=== PATIENT | female | born 1940 ===

== ENCOUNTER 2018-01-17 20:16 | Inpatient (IN) | payer MEDICARE, MEDICAID ==
[2018-01-17 11:18] VITALS: BMI 28.1
[~2018-01-17 20:16] MED LIST: ceFAZolin IV 1 gm in Dextrose 1 GM/50 ML BAG IVPB SCH
[2018-01-17] MEDS ORDERED: Lidocaine 2% MPF (5 ml) Inj ONE ×2 (21:03→22:05)
[2018-01-17] MEDS ORDERED: Midazolam 2 MG/2 ML VIAL ONE ×2 (21:03→21:48)
[2018-01-17] MEDS ORDERED: Iodixanol 320 MG/ML 100 ML BOTTLE IV ONE (22:05)
[2018-01-17] MEDS: Sodium Chloride 0.9% 1,000 ML IV SCH (23:45)
[2018-01-18] MEDS ORDERED: Glucagon Recombinant 1 mg Inj IM PRN (00:04)
[2018-01-18] MEDS ORDERED: Dextrose 50% SYRINGE Inj (50 ml) IV PRN (00:04)
[2018-01-18] MEDS: (Lantus) Insulin Glargine, Recombinant SC SCH ×2 (01:00→10:14)
[2018-01-18] MEDS: Sodium Chloride 0.9% 1,000 ML IV SCH (01:00)
[2018-01-18] MEDS ORDERED: ceFAZolin IV 1 gm in Dextrose 1 GM/50 ML BAG IVPB SCH (01:00)
[2018-01-18] MEDS: ceFAZolin IV 1 gm in Dextrose 1 GM/50 ML BAG IVPB SCH ×2 (01:30→13:00)
[2018-01-18] MEDS: Heparin25000 units/250ml 1/2NS 25,000 UNITS/250 ML BAG IV PRN (02:30)
[2018-01-18] MEDS: Morphine 4 MG/ML VIAL IVP PRN ×2 (03:58→10:13)
--- NOTE | 2018-01-18 04:08 | CP.PCM.HP ---
<Benjamin Stanton P - Last Filed: 01/18/18 04:23> Meds Allergies/Adverse Reactions: Allergies Allergy/AdvReac Type Severity Reaction Status Date / Time aspirin AdvReac RASH Verified 06/09/16 13:11 Attending/Attestation - Attestation I have personally seen and examined this patient.: Yes I have fully participated in the care of the patient.: Yes I have reviewed all pertinent clinical information: Yes Notes (Text): 01/18/18 04:24 Assessment * Right SFA acute occlusion with limb ischemia s/p angioplasty with improvement in flow at the SFA, but significant distal disease, no DP, PT, or poplitial art pulsations, cold posterior half of lower 2/3 of the right leg, and anterior 1/3 , including foot. Poor sensation in above mentioned areas. * IDDM * HTN * CRI Plan * Heparin drip over night * Brilianta * Home meds, hold plavix * Pain control * Observe in ICU * See orders for detail. <Vinicius Aquino - Last Filed: 01/18/18 05:11> History of Present Illness - History of Present Illness History of Present Illness: HPI: 77 year old female s/p peripheral angiogram by Dr.Raashan Guzman at [facility] on 01/01 developed severe right leg pains post procedure. Was seen by him in office a week after procedure and then came to the ED last week for similar pains. Pt presented to [facility] ED with worsening pain and cold RLE ongoing for 2-3 hours pre-presentation. CTA done showing occluded Common Femoral Artery. Pt describes a cold RLE below the knee with severe pallor on presentation to [place] ED. Pt was Evaluateed BY Dr Darden and was transferred Here to [facility] and underwent emergent endovascular revascularization with balloon angioplasty. Pt seen and examined at [facility] ICU. Pt reports a dramatic improvement in pain since revascularization procedure but still complains of pains in the right upper groin. Pt reports an improvement in color and warmth of RLE. ROS: pos+ R thigh and groin pain, mild numbness RLE, cold right foot (improved) neg- cp, sob, f/c n/v , pallor, PMH: Anemia, Anxiety, Arthritis, Asthma, COPD, Depression, Diabetes, Graves' Disease, HTN, Osteoporosis, Pneumonia Denies: CHF, Hypercholesterolemia, Hypothyroidism, Chronic Kidney Disease PSx: L arm orthopaedic surgery Family HX: denies Soc: former smoker, denies drinking and drug use allergies: denies code status: full Present on Admission - Present on Admission Any Indicators Present on Admission: Yes History of DVT/PE: Yes Review of Systems - Constitutional Constitutional: As Per HPI - EENT Eyes: As Per HPI Ears: As Per HPI Nose/Mouth/Throat: As Per HPI - Breasts Breasts: As Per HPI - Cardiovascular Cardiovascular: As Per HPI - Respiratory Respiratory: As Per HPI - Gastrointestinal Gastrointestinal: As Per HPI - Genitourinary Genitourinary: As Per HPI - Reproductive: Female Reproductive:Female: As Per HPI - Menstruation Menstruation: As Per HPI - Musculoskeletal Musculoskeletal: As Per HPI - Integumentary Integumentary: As Per HPI - Neurological Neurological: As Per HPI - Psychiatric Psychiatric: As Per HPI - Endocrine Endocrine: As Per HPI - Hematologic/Lymphatic Hematologic: As Per HPI Past Patient History - Infectious Disease Hx of Infectious Diseases: None - Tetanus Immunizations Tetanus Immunization: Unknown - Past Medical History & Family History Past Medical History?: Yes - Past Social History Smoking Status: Former Smoker - CARDIAC Hx Congestive Heart Failure: No Hx Hypercholesterolemia: No Hx Hypertension: Yes - PULMONARY Hx Asthma: Yes Hx Chronic Obstructive Pulmonary Disease (COPD): Yes Hx Pneumonia: Yes - NEUROLOGICAL Hx Neurological Disorder: No - HEENT Hx HEENT Problems: Yes Other/Comment: Allergic Rhinitis - RENAL Hx Chronic Kidney Disease: No - ENDOCRINE/METABOLIC Hx Diabetes Mellitus Type 2: Yes Hx Hypothyroidism: No - HEMATOLOGICAL/ONCOLOGICAL Hx Anemia: Yes - INTEGUMENTARY Hx Dermatological Problems: No - MUSCULOSKELETAL/RHEUMATOLOGICAL Hx Arthritis: Yes Hx Falls: No Hx Osteoporosis: Yes - GASTROINTESTINAL Hx Gastrointestinal Disorders: No - GENITOURINARY/GYNECOLOGICAL Hx Genitourinary Disorders: No - PSYCHIATRIC Hx Anxiety: Yes Hx Depression: Yes - SURGICAL HISTORY Hx Surgeries: Yes Hx Angiogram: Yes (As per pt, done by Dr. Yovani Guzman) Hx Orthopedic Surgery: Yes (left arm surgery) - ANESTHESIA Hx Anesthesia: Yes Hx Anesthesia Reactions: No Hx Malignant Hyperthermia: No Has any member of the family had a problem w/ anesthesia?: No Physical Exam - Constitutional Appears: Non-toxic, No Acute Distress - Head Exam Head Exam: ATRAUMATIC, NORMAL INSPECTION - Eye Exam Eye Exam: EOMI, Normal appearance. absent: Scleral icterus - ENT Exam ENT Exam: Mucous Membranes Moist, Normal Exam - Neck Exam Neck exam: Positive for: Normal Inspection - Respiratory Exam Respiratory Exam: Clear to Auscultation Bilateral, NORMAL BREATHING PATTERN - Cardiovascular Exam Cardiovascular Exam: RRR, +S1, +S2. absent: Systolic Murmur - GI/Abdominal Exam GI & Abdominal Exam: Soft. 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
[2018-01-18 06:14] LABS: INR 1.2; PROTHROMBIN TIME 12.9 SECONDS (9.7-12.2)
[2018-01-18 06:48] LABS: MEAN CORPUSCULAR HEMOGLOBIN 29.2 pg (27.0-31.0); MEAN CORPUSCULAR HGB CONC 33.2 g/dL (33.0-37.0); MEAN PLATELET VOLUME 9.2 fL (7.2-11.7); RBC 3.03 Mil/uL (3.80-5.20); RED CELL DISTRIBUTION WIDTH 14.5 % (11.5-14.5); WHITE BLOOD COUNT 9.8 K/uL (4.8-10.8)
[2018-01-18 06:54] LABS: ALB/GLOB RATIO 1.3 (1.0-2.1); ALBUMIN 3.8 g/dL (3.5-5.0)
[2018-01-18 07:00] LABS: HEMOGLOBIN 8.8 g/dL (11.0-16.0)
[2018-01-18 07:07] LABS: CK-MB 6.4 ng/mL (0.0-3.38)
[2018-01-18] MEDS ORDERED: (Novolog) Insulin Aspart, Recombinant 100 u/ml 10 ml vial SC SCH (07:30)
[2018-01-18] MEDS: (Novolog) Insulin Aspart, Recombinant 100 u/ml 10 ml vial SC SCH ×7 (09:20→21:47)
[2018-01-18] MEDS: Sodium Bicarbonate 8.4% 75 MEQ in Sodium Chloride 0.45% 925 ML IV SCH ×2 (09:22→22:19)
[2018-01-18] MEDS: Aspirin-Dipyridamole 200-25 mg ER Cap PO SCH ×2 (09:31→18:05)
[2018-01-18] MEDS: Pantoprazole 40 mg EC Tab PO SCH (09:32)
--- NOTE | 2018-01-18 15:09 | CP.PCM.PN ---
Subjective - Date & Time of Evaluation Date of Evaluation: 01/18/18 Time of Evaluation: 08:45 - Subjective Subjective: Patient admitted to ICU for observation post angioplasty. Objective - Vital Signs/Intake and Output Vital Signs (last 24 hours): Temp Pulse Resp BP Pulse Ox 98.2 F 109 H 19 114/50 L 99 01/18/18 12:00 01/18/18 13:50 01/18/18 13:50 01/18/18 13:00 01/18/18 13:50 Intake and Output: 01/18/18 01/18/18 06:59 18:59 Intake Total 720 1215.2 Output Total 300 Balance 720 915.2 - Medications Medications: Current Medications Dextrose (Dextrose 50% Inj) 0 ml IV STAT PRN; Protocol PRN Reason: Hypoglycemia Protocol Dextrose (Glutose 15) 0 gm PO ONCE PRN; Protocol PRN Reason: Hypoglycemia Protocol Dipyridamole/Aspirin (Aggrenox 25-200 Mg) 1 ea PO BID [facility] Last Admin: 01/18/18 09:31 Dose: 1 ea Glucagon (Glucagen Diagnostic Kit) 0 mg IM STAT PRN; Protocol PRN Reason: Hypoglycemia Protocol Dextrose (Dextrose 5% In Water 1000 Ml) 1,000 mls @ 0 mls/hr IV .Q0M PRN; Protocol; Per Protocol PRN Reason: Hypoglycemia Protocol Cefazolin Sodium/Dextrose (Ancef Iv 1 Gm Duplex) 1 gm in 50 mls @ 100 mls/hr IVPB Q12H [facility]PH PRN Reason: Protocol Last Admin: 01/18/18 13:00 Dose: 100 mls/hr Heparin Sodium/Sodium Chloride (Heparin 89430 Units/250ml 1/2 Normal Saline) 25 ,000 units in 250 mls @ 6.491 mls/hr IV .Q24H PRN; Protocol; 9 UNITS/KG/HR PRN Reason: PROTOCOL Last Titration: 01/18/18 12:08 Dose: 10 units/kg/hr, 7.212 mls/hr Sodium Bicarbonate 75 meq/ (Sodium Chloride) 1,000 mls @ 75 mls/hr IV .[id number] [facility] Last Admin: 01/18/18 09:22 Dose: 75 mls/hr Insulin Aspart (Novolog) 0 unit SC ACHS [facility] PRN Reason: Protocol Last Admin: 01/18/18 12:46 Dose: 2 units Insulin Aspart (Novolog) 12 unit SC TIDAC [facility] Last Admin: 01/18/18 12:46 Dose: 12 units Insulin Glargine (Lantus) 30 unit SC DAILY [facility] Last Admin: 01/18/18 10:14 Dose: 30 units Mirtazapine (Remeron) 15 mg PO DAILY [facility] Last Admin: 01/18/18 09:31 Dose: 15 mg Montelukast Sodium (Singulair) 10 mg PO DAILY [facility] Last Admin: 01/18/18 09:31 Dose: 10 mg Morphine Sulfate (Morphine) 6 mg IVP Q6 PRN PRN Reason: Pain, severe (8-10) Last Admin: 01/18/18 14:53 Dose: 6 mg Pantoprazole Sodium (Protonix Ec Tab) 40 mg PO DAILY [facility] Last Admin: 01/18/18 09:32 Dose: 40 mg Rosuvastatin Calcium (Crestor) 10 mg PO HS [facility] Last Admin: 01/18/18 01:00 Dose: 10 mg Ticagrelor (Brilinta) 90 mg PO BID [facility] Last Admin: 01/18/18 10:19 Dose: Not Given - Labs Labs: 01/18/18 06:26 01/18/18 06:26 PT 12.9 SECONDS (9.7-12.2) H 01/18/18 04:45 INR 1.2 01/18/18 04:45 APTT 45 SECONDS (21-34) H D 01/18/18 12:18 Assessment and Plan - Assessment and Plan (Free Text) Assessment: 77 y/o female with pmx of PVD presents to [facility] with right lower leg cold, s/p reperfusion with angioplasty -continue dual antiplatelet therapy (brillinta + IV heparin) and po statin -continue IVF -monitor peripheral pulses if any abnormality call vascular/cardiology -monitor for any bleeding -Patient remains hemodynamically stable.
[2018-01-18] MEDS ORDERED: Aluminum Hydroxide/Magnesium Hydroxide Susp (30 mL) PO STA (15:41)
--- NOTE | 2018-01-18 17:07 | RAD ---
Date of service: 01/18/2018 HISTORY: eval lungs COMPARISON: No prior similar study for comparison FINDINGS: LUNGS: Mild pulmonary vascular congestion noted. PLEURA: No significant pleural effusion identified, no pneumothorax apparent. CARDIOVASCULAR: Normal. OSSEOUS STRUCTURES: No significant abnormalities. VISUALIZED UPPER ABDOMEN: Normal. OTHER FINDINGS: None. IMPRESSION: Mild pulmonary vascular congestion.
[2018-01-19] MEDS: ceFAZolin IV 1 gm in Dextrose 1 GM/50 ML BAG IVPB SCH (00:36)
[2018-01-19] MEDS: Heparin25000 units/250ml 1/2NS 25,000 UNITS/250 ML BAG IV PRN (06:25)
[2018-01-19 06:30] LABS: BASO # 0.1 K/uL (0.0-0.2); BASO % 0.6 % (0.0-2.0); EOS # 0.3 K/uL (0.0-0.7); HEMOGLOBIN 8.3 g/dL (11.0-16.0); LYMPH # 2.5 K/uL (1.0-4.3); LYMPH % 27.4 % (20.0-40.0); MEAN CELL VOLUME 87.8 fL (81.0-99.0); MEAN CORPUSCULAR HEMOGLOBIN 29.2 pg (27.0-31.0); MEAN CORPUSCULAR HGB CONC 33.2 g/dL (33.0-37.0); MEAN PLATELET VOLUME 8.8 fL (7.2-11.7); MONO # 1.2 K/uL (0.0-0.8); MONO % 13.4 % (0.0-10.0); NEUT % 55.6 % (50.0-75.0); RBC 2.83 Mil/uL (3.80-5.20); RED CELL DISTRIBUTION WIDTH 14.2 % (11.5-14.5); WHITE BLOOD COUNT 8.9 K/uL (4.8-10.8)
[2018-01-19 07:11] LABS: ALB/GLOB RATIO 1.2 (1.0-2.1); ALBUMIN 3.4 g/dL (3.5-5.0); CALCIUM 8.6 mg/dl (8.6-10.4)
[2018-01-19] MEDS: (Novolog) Insulin Aspart, Recombinant 100 u/ml 10 ml vial SC SCH ×7 (08:02→22:00)
--- NOTE | 2018-01-19 08:28 | VAS ---
Copied To: Michael Darden MD Attending MD: Michael Darden MD DATE: 01/17/2018 INDICATIONS: Ms. Chavez is a 77-year-old female, patient of Dr. Jasen Guzman, who had undergone a procedure on 12/02 diagnostic angiogram. Subsequent to that, she has some mild discomfort which progressively got worse. She came to the emergency room last week at [facility], and was subsequently discharged after venous disease. She presented back today to [place] ER with excruciating pain and cold right lower extremity. A CT angiogram of the lower extremity showed 100% occluded common femoral artery; therefore, she was brought emergently to the lab support tech for the further evaluation and treatment. PROCEDURE PERFORMED: 1. Distal abdominal aortogram with bilateral iliac runoff. 2. Bilateral iliofemoral angiogram with runoff. Atherectomy and balloon angioplasty of 100% occluded right common femoral artery with use of LSM TurboHawk atherectomy device and 7 x 30 balloon with regeneration from 100% down to 0% improvement in flow, of RENETTA-0 to RENETTA-3 with 7-Ghanaian left femoral access manual pressure for hemostasis. TECHNIQUES OF PROCEDURE: After obtaining informed consent, the patient was brought to the cardiac cath suite in post absorptive, non-sedated state. The patient was prepped and draped in the usual sterile fashion. A 2% lidocaine was used for infiltration of anesthesia. Using modified Seldinger technique, a 7-Ghanaian sheath was introduced into the left femoral artery. Left iliofemoral angiogram with runoff was performed. ANGIOGRAPHIC FINDINGS OF LEFT LOWER EXTREMITY: Left common iliac and external iliac patent, common femoral patent, profunda femoris patent, SFA moderate diffuse disease in the mid segment, 30% to 40% distal segment, has a 70% to 80% stenosis with 2-vessel runoff below the knee. Subsequently, a Contra catheter was advanced into the abdominal aorta. Abdominal aortogram with bilateral iliac runoff was performed. Subsequently, the catheter was advanced across the aortoiliac bifurcation to the right common femoral artery. Digital subtraction angiographic views of the SFA was tried to obtained, but there was very poor flow at the level of the common femoral artery. ANGIOGRAPHIC FINDINGS OF THE RIGHT LOWER EXTREMITY: Right common iliac patent, external iliac patent, right common femoral artery 100% occluded with very minimal flow distally. Mild reconstituted flow at the SFA and the profunda femoris via the collateral circulation. At this point, using a 0.018 support catheter, Guidewire gold-tip was negotiated through the lesion. Subsequently, a 4-0 balloon was used to dilate the 100% left to right lesion which were combination of thrombotic mesh and flap with some debris. At this point, a 5-0 balloon was then used over a 0.035 guidewire. Subsequently, the 6-Ghanaian sheath was exchanged to a 7-Ghanaian sheath, and a LSM TurboHawk atherectomy of the common femoral artery was done. Subsequent to the atherectomy, there was improvement in flow down the common femoral artery. At this point, a 7-0 balloon angioplasty was done. Final angiogram done showed good flow in RENETTA-3 flow feeding the SFA and the profunda femoris artery. [id number] digital subtraction angiographic views were done which showed severe infrageniculate disease with of anterior tibial artery feeding the dorsalis pedis. IMPRESSION: Successful atherectomy angioplasty of the right common femoral artery thrombotic occlusion, use of LSM TurboHawk arthrectomy device and balloon angioplasty with a 7 x 30 balloon. RECOMMENDATION: The patient is to be kept overnight, continue patient on IV heparin therapy for 24 hours. Give the patient Integrilin drip secondary to heavy thrombus burden. The patient to be transferred back to [place] tomorrow under Dr. Young's service. The patient will be kept on dual antiplatelet therapy, possibly discharge to home in 24 to [address] Jasen Guzman and Dr. Darrian Young. Michael Darden MD cc: MD Darrian Long MD
[2018-01-19] MEDS: Pantoprazole 40 mg EC Tab PO SCH (10:00)
[2018-01-19] MEDS: (Lantus) Insulin Glargine, Recombinant SC SCH (10:03)
[2018-01-19] MEDS: Sodium Chloride 0.9% 1,000 ML IV SCH ×2 (11:21→23:20)
--- NOTE | 2018-01-19 11:38 | CP.CCUPN ---
CCU Subjective - Physician Review Subjective (Free Text): Alvin Aviles DO PGY-1, ICU progress note for Dr. Bal Pt was seen and examined at bedside. Pt is still complaining of pain to the right lower extremity, which she says is unchanged since prior to angioplasty. Pain is sharp, nonradiating and is not alleviated or worsened by anything. Pt denies headache, dizziness, lightheadedness, chest pain, palpitations, sob, abdominal pain, n/v/d. A 12-point ROS was reviewed and is otherwise unremarkable. CCU Objective - Vital Signs / Intake & Output Vital Signs (Last 4 hours): Vital Signs Temp Pulse Resp BP Pulse Ox 01/19/18 08:01 74 16 114/46 L 98 01/19/18 08:00 98.6 F 79 16 98 Intake and Output (Last 8hrs): Intake & Output 01/18/18 01/19/18 01/19/18 22:59 06:59 14:59 Intake Total 1007.6 895.4 82.2 Output Total 600 800 Balance 407.6 95.4 82.2 Weight 72.83 kg Intake: IV 145 Intake, IV Amount 657.6 650.4 82.2 Left Hand 57.6 50.4 7.2 Right Antecubital 600 600 75 Oral 350 100 Output: Urine 600 800 Urine, Voided 600 800 - Physical Exam Head: Positive for: Atraumatic, Normocephalic Pupils: Positive for: PERRL Extroacular Muscles: Positive for: EOMI Conjunctiva: Positive for: Normal Mouth: Positive for: Moist Mucous Membranes Neck: Positive for: Normal Range of Motion Respiratory/Chest: Positive for: Clear to Auscultation, Good Air Exchange. Negative for: Respiratory Distress Cardiovascular: Positive for: Regular Rate and Rhythm, Normal S1, S2 Abdomen: Positive for: Normal Bowel Sounds. Negative for: Tenderness, Distention Upper Extremity: Positive for: Normal Inspection, NORMAL PULSES Lower Extremity: Positive for: Capillary Refill < 2 s (bilaterally). Negative for: Edema, NORMAL PULSES (rightDP/ PT pulses are not obtainable by dopplar; (+ ) warm, not cyanotic, normal color, ) Neurological: Positive for: GCS=15, Motor Func Grossly Intact ((+) 3/5 strength to right lower extremity). Negative for: Normal Sensory Function ((+) decreased sensation to the right lower extremity when compared to the left) Skin: Positive for: Warm, Dry, Normal Color Psychiatric: Positive for: Alert, Oriented x 3 - Medications Active Medications: Active Medications Generic Name Dose Route Start Last Admin Trade Name Freq PRN Reason Stop Dose Admin Dextrose 0 ml 01/18/18 00:04 Dextrose 50% Inj IV STAT PRN Hypoglycemia Protocol Protocol Dextrose 0 gm 01/18/18 00:04 Glutose 15 PO ONCE PRN Hypoglycemia Protocol Protocol Glucagon 0 mg 01/18/18 00:04 Glucagen Diagnostic Kit IM STAT PRN Hypoglycemia Protocol Protocol Dextrose 1,000 mls @ 0 mls/hr 01/18/18 00:04 Dextrose 5% In Water 1000 Ml IV .Q0M PRN Hypoglycemia Protocol Protocol Per Protocol Sodium Chloride 1,000 mls @ 75 mls/hr 01/19/18 11:00 01/19/18 11:21 Sodium Chloride 0.9% IV 75 mls/hr .[id number] [facility] Administration Insulin Aspart 0 unit 01/18/18 07:30 01/19/18 08:02 Novolog SC 2 units ACHS [facility] Administration Protocol Insulin Aspart 12 unit 01/18/18 07:30 01/19/18 08:03 Novolog SC 12 units TIDAC [facility] Administration Insulin Glargine 30 unit 01/18/18 00:00 01/19/18 10:03 Lantus SC 30 units DAILY [facility] Administration Mirtazapine 15 mg 01/18/18 10:00 01/19/18 10:03 Remeron PO 15 mg DAILY [facility] Administration Montelukast Sodium 10 mg 01/18/18 10:00 01/19/18 10:00 Singulair PO 10 mg DAILY [facility] Administration Morphine Sulfate 2 mg 01/19/18 10:55 Morphine IVP Q4 PRN Pain, severe (8-10) Pantoprazole Sodium 40 mg 01/18/18 10:00 01/19/18 10:00 Protonix Ec Tab PO 40 mg DAILY [facility] Administration Rivaroxaban 20 mg 01/19/18 11:00 01/19/18 11:26 Xarelto PO 20 mg DAILY [facility] Administration Rosuvastatin Calcium 10 mg 01/17/18 00:15 01/18/18 21:44 Crestor PO 10 mg HS [facility] Administration Ticagrelor 90 mg 01/18/18 10:00 01/19/18 10:00 Brilinta PO 90 mg BID R[facility] Administration - Patient Studies Lab Studies: Lab Studies 01/19/18 01/19/18 01/19/18 Range/Units 06:17 06:17 06:17 WBC 8.9 (4.8-10.8) K/uL RBC 2.83 L (3.80-5.20) Mil/uL Hgb 8.3 L (11.0-16.0) g/dL Hct 24.8 L (34.0-47.0) % MCV 87.8 (81.0-99.0) fL MCH 29.2 (27.0-31.0) pg MCHC 33.2 (33.0-37.0) g/dL RDW 14.2 (11.5-14.5) % Plt Count 220 (130-400) K/uL MPV 8.8 (7.2-11.7) fL Neut % (Auto) 55.6 (50.0-75.0) % Lymph % (Auto) 27.4 (20.0-40.0) % Craig % (Auto) 13.4 H (0.0-10.0) % Eos % (Auto) 3.0 (0.0-4.0) % Baso % (Auto) 0.6 (0.0-2.0) % Neut # (Auto) 5.0 (1.8-7.0) K/uL Lymph # (Auto) 2.5 (1.0-4.3) K/uL Craig # (Auto) 1.2 H (0.0-0.8) K/uL Eos # (Auto) 0.3 (0.0-0.7) K/uL Baso # (Auto) 0.1 (0.0-0.2) K/uL APTT 46 H (21-34) SECONDS Sodium 137 (132-148) mmol/L Potassium 4.1 (3.6-5.2) mmol/L Chloride 101 (98-107) mmol/L Carbon Dioxide 31 H (22-30) mmol/L Anion Gap 9 L (10-20) BUN 34 H (7-17) mg/dL Creatinine 1.4 H (0.7-1.2) mg/dL Est GFR ( Amer) 44 Est GFR (Non-Af Amer) 36 Random Glucose 163 H (65-105) mg/dL Calcium 8.6 (8.6-10.4) mg/dl Phosphorus 2.4 L (2.5-4.5) mg/dL Magnesium 2.6 H (1.6-2.3) mg/dL Total Bilirubin 0.3 (0.2-1.3) mg/dL AST 71 H D (14-36) U/L ALT 41 (9-52) U/L Alkaline Phosphatase 65 (38-126) U/L Troponin I (0.00-0.120) ng/mL Total Protein 6.2 L (6.3-8.3) g/dL Albumin 3.4 L (3.5-5.0) g/dL Globulin 2.8 (2.2-3.9) gm/dL Albumin/Globulin Ratio 1.2 (1.0-2.1) 01/19/18 01/18/18 01/18/18 Range/Units 06:17 18:14 15:14 WBC (4.8-10.8) K/uL RBC (3.80-5.20) Mil/uL Hgb (11.0-16.0) g/dL Hct (34.0-47.0) % MCV (81.0-99.0) fL MCH (27.0-31.0) pg MCHC (33.0-37.0) g/dL RDW (11.5-14.5) % Plt Count (130-400) K/uL MPV (7.2-11.7) fL Neut % (Auto) (50.0-75.0) % Lymph % (Auto) (20.0-40.0) % Craig % (Auto) (0.0-10.0) % Eos % (Auto) (0.0-4.0) % Baso % (Auto) (0.0-2.0) % Neut # (Auto) (1.8-7.0) K/uL Lymph # (Auto) (1.0-4.3) K/uL Craig # (Auto) (0.0-0.8) K/uL Eos # (Auto) (0.0-0.7) K/uL Baso # (Auto) (0.0-0.2) K/uL APTT 45 H (21-34) SECONDS Sodium (132-148) mmol/L Potassium (3.6-5.2) mmol/L Chloride (98-107) mmol/L Carbon Dioxide (22-30) mmol/L Anion Gap (10-20) BUN (7-17) mg/dL Creatinine (0.7-1.2) mg/dL Est GFR ( Amer) Est GFR (Non-Af Amer) Random Glucose (65-105) mg/dL Calcium (8.6-10.4) mg/dl Phosphorus (2.5-4.5) mg/dL Magnesium (1.6-2.3) mg/dL Total Bilirubin (0.2-1.3) mg/dL AST (14-36) U/L ALT (9-52) U/L Alkaline Phosphatase (38-126) U/L Troponin I < 0.0120 < 0.0120 (0.00-0.120) ng/mL Total Protein (6.3-8.3) g/dL Albumin (3.5-5.0) g/dL Globulin (2.2-3.9) gm/dL Albumin/Globulin Ratio (1.0-2.1) /05/26 Range/Units 12:18 WBC (4.8-10.8) K/uL RBC (3.80-5.20) Mil/uL Hgb (11.0-16.0) g/dL Hct (34.0-47.0) % MCV (81.0-99.0) fL MCH (27.0-31.0) pg MCHC (33.0-37.0) g/dL RDW (11.5-14.5) % Plt Count (130-400) K/uL MPV (7.2-11.7) fL Neut % (Auto) (50.0-75.0) % Lymph % (Auto) (20.0-40.0) % Craig % (Auto) (0.0-10.0) % Eos % (Auto) (0.0-4.0) % Baso % (Auto) (0.0-2.0) % Neut # (Auto) (1.8-7.0) K/uL Lymph # (Auto) (1.0-4.3) K/uL Craig # (Auto) (0.0-0.8) K/uL Eos # (Auto) (0.0-0.7) K/uL Baso # (Auto) (0.0-0.2) K/uL APTT 45 H D (21-34) SECONDS Sodium (132-148) mmol/L Potassium (3.6-5.2) mmol/L Chloride (98-107) mmol/L Carbon Dioxide (22-30) mmol/L Anion Gap (10-20) BUN (7-17) mg/dL Creatinine (0.7-1.2) mg/dL Est GFR ( Amer) Est GFR (Non-Af Amer) Random Glucose (65-105) mg/dL Calcium (8.6-10.4) mg/dl Phosphorus (2.5-4.5) mg/dL Magnesium (1.6-2.3) mg/dL Total Bilirubin (0.2-1.3) mg/dL AST (14-36) U/L ALT (9-52) U/L Alkaline Phosphatase (38-126) U/L Troponin I (0.00-0.120) ng/mL Total Protein (6.3-8.3) g/dL Albumin (3.5-5.0) g/dL Globulin (2.2-3.9) gm/dL Albumin/Globulin Ratio (1.0-2.1) Laboratory Results - last 24 hr 01/18/18 01/18/18 01/18/18 12:18 15:14 18:14 WBC RBC Hgb Hct MCV MCH MCHC RDW Plt Count MPV Neut % (Auto) Lymph % (Auto) Craig % (Auto) Eos % (Auto) Baso % (Auto) Neut # (Auto) Lymph # (Auto) Craig # (Auto) Eos # (Auto) Baso # (Auto) APTT 45 H D 45 H Sodium Potassium Chloride Carbon Dioxide Anion Gap BUN Creatinine Est GFR ( Amer) Est GFR (Non-Af Amer) Random Glucose Calcium Phosphorus Magnesium Total Bilirubin AST ALT Alkaline Phosphatase Troponin I < 0.0120 Total Protein Albumin Globulin Albumin/Globulin Ratio 01/19/18 01/19/18 01/19/18 06:17 06:17 06:17 WBC 8.9 RBC 2.83 L Hgb 8.3 L Hct 24.8 L MCV 87.8 MCH 29.2 MCHC 33.2 RDW 14.2 Plt Count 220 MPV 8.8 Neut % (Auto) 55.6 Lymph % (Auto) 27.4 Craig % (Auto) 13.4 H Eos % (Auto) 3.0 Baso % (Auto) 0.6 Neut # (Auto) 5.0 Lymph # (Auto) 2.5 Craig # (Auto) 1.2 H Eos # (Auto) 0.3 Baso # (Auto) 0.1 APTT 46 H Sodium Potassium Chloride Carbon Dioxide Anion Gap BUN Creatinine Est GFR ( Amer) Est GFR (Non-Af Amer) Random Glucose Calcium Phosphorus Magnesium Total Bilirubin AST ALT Alkaline Phosphatase Troponin I < 0.0120 Total Protein Albumin Globulin Albumin/Globulin Ratio 01/19/18 06:17 WBC RBC Hgb Hct MCV MCH MCHC RDW Plt Count MPV Neut % (Auto) Lymph % (Auto) Craig % (Auto) Eos % (Auto) Baso % (Auto) Neut # (Auto) Lymph # (Auto) Craig # (Auto) Eos # (Auto) Baso # (Auto) APTT Sodium 137 Potassium 4.1 Chloride 101 Carbon Dioxide 31 H Anion Gap 9 L BUN 34 H Creatinine 1.4 H Est GFR ( Amer) 44 Est GFR (Non-Af Amer) 36 Random Glucose 163 H Calcium 8.6 Phosphorus 2.4 L Magnesium 2.6 H Total Bilirubin 0.3 AST 71 H D ALT 41 Alkaline Phosphatase 65 Troponin I Total Protein 6.2 L Albumin 3.4 L Globulin 2.8 Albumin/Globulin Ratio 1.2 Fingerstick Blood Sugar Results: 184 Review of Systems - Review of Systems All systems: reviewed and no additional remarkable complaints except (as per HPI ) Critical Care Progress Note - Prophylaxis GI Prophylaxis GI: PPI - Prophylaxis DVT Prophylaxis DVT: Not Indicated (on xarelto and brillinta) - Nutrition Nutrition: Nutrition Category Date Time Status Consistent Carbohydrate [DIET] Diets 01/18/18 Breakfast Active Assessment/Plan - Assessment and Plan (Free Text) Assessment: This is a 77 year old female with PMHx of DM, HTN, PVD, PAD, asthma, COPD, s/p angiogram on 01/[address] Raz Guzman who was presented to the ED with right lower extremity pain and poikilothermia. Pt was noted to have right femoral arterial occlusion, which was treated with angioplastyby Dr. Darden. Pt is in the ICU for neurovascular monitoring. Neuro: - monitor for mental status changes - pt is AAOx3 - Morphine for analgesia - continue home mitrazapine Cardio: - DAP therapy with ticagrelor and rivaroxaban as per cardio - continue home hctz, amlodipine, crestor - continue neurovascular monitoring of lower extremity - f/u cardiology recs Pulm: - continue duonebs -pt is satting well on RA - maintain spo2>92% GI: - CCD - colace for constipation - protonix for pud ppx Renal: - maintain euvolemia - warren; BUN/Cr is 34/1.4 - continue NS IVF - monitor urine output with pure wick - maintain minimum urine output of 0.5 mL/kg/hr - replete electrolytes as needed ID: - no signs of infectoius etiology - pt afebrile - no leukocytosis Endo: - maintain euglycemia - ISS medium - accucheck achs Heme: - h/h is stable PPX: protonix for pud; pt is on DAP Dispo: Pt is medically stable and safe for transfer to telemetry Case was reviewed and discussed with attending physician, Dr. Bal.
--- NOTE | 2018-01-19 16:13 | CP.PCM.PN ---
Subjective - Date & Time of Evaluation Date of Evaluation: 01/19/18 Time of Evaluation: 16:00 - Subjective Subjective: Medical Attending Note: patient seen this afternoon. Patient denies headache, denies chest pain, denies shortness of breathe, reports constipation X3 days, reports pain over the right lower extremity, and reports she has been in bed all day. She reports she is a former smoker, stopped 20 years ago. Objective - Vital Signs/Intake and Output Vital Signs (last 24 hours): Temp Pulse Resp BP Pulse Ox 98.4 F 109 H 21 118/36 L 100 01/19/18 12:00 01/19/18 14:00 01/19/18 14:00 01/19/18 13:01 01/19/18 14:00 Intake and Output: 01/19/18 01/19/18 06:59 18:59 Intake Total 1324.2 82.2 Output Total 800 Balance 524.2 82.2 - Medications Medications: Current Medications Dextrose (Dextrose 50% Inj) 0 ml IV STAT PRN; Protocol PRN Reason: Hypoglycemia Protocol Dextrose (Glutose 15) 0 gm PO ONCE PRN; Protocol PRN Reason: Hypoglycemia Protocol Glucagon (Glucagen Diagnostic Kit) 0 mg IM STAT PRN; Protocol PRN Reason: Hypoglycemia Protocol Dextrose (Dextrose 5% In Water 1000 Ml) 1,000 mls @ 0 mls/hr IV .Q0M PRN; Protocol; Per Protocol PRN Reason: Hypoglycemia Protocol Sodium Chloride (Sodium Chloride 0.9%) 1,000 mls @ 75 mls/hr IV .[id number] [facility] Last Admin: 01/19/18 11:21 Dose: 75 mls/hr Insulin Aspart (Novolog) 0 unit SC ACHS [facility] PRN Reason: Protocol Last Admin: 01/19/18 12:21 Dose: 2 units Insulin Aspart (Novolog) 12 unit SC TIDAC [facility] Last Admin: 01/19/18 12:22 Dose: 12 units Insulin Glargine (Lantus) 30 unit SC DAILY [facility] Last Admin: 01/19/18 10:03 Dose: 30 units Mirtazapine (Remeron) 15 mg PO DAILY [facility] Last Admin: 01/19/18 10:03 Dose: 15 mg Montelukast Sodium (Singulair) 10 mg PO DAILY [facility] Last Admin: 01/19/18 10:00 Dose: 10 mg Morphine Sulfate (Morphine) 2 mg IVP Q4 PRN PRN Reason: Pain, severe (8-10) Pantoprazole Sodium (Protonix Ec Tab) 40 mg PO DAILY [facility] Last Admin: 01/19/18 10:00 Dose: 40 mg Rivaroxaban (Xarelto) 20 mg PO DAILY [facility] Last Admin: 01/19/18 11:26 Dose: 20 mg Rosuvastatin Calcium (Crestor) 10 mg PO HS [facility] Last Admin: 01/18/18 21:44 Dose: 10 mg Ticagrelor (Brilinta) 90 mg PO BID [facility] Last Admin: 01/19/18 10:00 Dose: 90 mg - Labs Labs: 01/19/18 06:17 01/19/18 06:17 PT 12.9 SECONDS (9.7-12.2) H 01/18/18 04:45 INR 1.2 01/18/18 04:45 APTT 46 SECONDS (21-34) H 01/19/18 06:17 - Constitutional Appears: Non-toxic, No Acute Distress - Head Exam Head Exam: NORMAL INSPECTION - Eye Exam Eye Exam: EOMI - ENT Exam ENT Exam: Mucous Membranes Moist - Respiratory Exam Respiratory Exam: Clear to Ausculation Bilateral. absent: Rales, Rhonchi, Wheezes - Cardiovascular Exam Cardiovascular Exam: Tachycardia, +S1, +S2 - GI/Abdominal Exam GI & Abdominal Exam: Distended, Soft, Normal Bowel Sounds. absent: Firm, Guarding, Rigid, Tenderness, Rebound Additional comments: obese habitus - Extremities Exam Extremities Exam: Pedal Edema (lymphedema, nonpitting) Additional comments: multiple varicosities warm to touch tender to palpatel - Neurological Exam Neurological Exam: Alert, Awake, Oriented x3 - Psychiatric Exam Psychiatric exam: Normal Affect, Normal Mood - Skin Skin Exam: Dry, Normal Color, Warm Assessment and Plan (1) Limb ischemia Assessment & Plan: Dr. Darden (software designer) on case-->help appreciated * Angiography (01/17/18): short segment occlusion of distal external iliac artery extending to the proximal common femoral artery. Multifocal areas of severe stenosis of superficial femoral and popliteral arterieis. Lower lower extremities: indwelling proximal/mid superficial femoral artery stent which is patent. Multifocal areas of moderate stenosis involving the superficial femorial artery with mild to moderate stenosis of the popliteal artery. posterior tibial artery. Successful atherectomy angioplasty with right common femoral artery thrombotic occlusion (01/17/18): Patient switched from Heparin drip to Xarelto today. Discussed with Dr. Darden, to engage muscles in the legs to promote circulation. Medication: Xarelto 20mg PO Daily Brilinta 90mg PO BID Status: Acute (2) PVD (peripheral vascular disease) Assessment & Plan: Known to both Dr. Guzman and Dr. Darden Status: Chronic (3) IDDM (insulin dependent diabetes mellitus) Assessment & Plan: Aspart 12 unit subq TIDAC LLantus 33 units subqHS Accuchecks QAC and HS HYpoglycemic protocol Hgba1c: 7.7 (06/28/17) Status: Chronic (4) Hypertension Assessment & Plan: Patient takes Valasartan 320mg PO daily as outpatient Status: Chronic (5) Asthma Assessment & Plan: Duonebs PRN shortness of breathe Singulair 10mg PO daily Status: Chronic (6) Constipation Assessment & Plan: start colace 100mg PO TID monitor for bowel movement Status: Acute (7) Prophylactic measure Assessment & Plan: Xarelto 20mg PO daily Protonix 40mg PO daily PT/OT eval out of bed to chair Status: Acute
[2018-01-19] MEDS ORDERED: Oxycodone/Acetaminophen 5/325 mg Tab PO ONE (16:38)
[2018-01-19] MEDS: Albuterol-Ipratrop 3 mg / 0.5 (3 ml) UD INH SCH (20:29)
[2018-01-19] MEDS ORDERED: (Lantus) Insulin Glargine, Recombinant SC SCH (22:00)
[2018-01-20] MEDS: Albuterol-Ipratrop 3 mg / 0.5 (3 ml) UD INH SCH ×3 (01:18→13:44)
[2018-01-20 06:28] LABS: BASO # 0.1 K/uL (0.0-0.2); BASO % 0.6 % (0.0-2.0); EOS # 0.3 K/uL (0.0-0.7); EOS % 3.1 % (0.0-4.0); HEMOGLOBIN 8.3 g/dL (11.0-16.0); LYMPH # 1.6 K/uL (1.0-4.3); LYMPH % 17.3 % (20.0-40.0); MEAN CELL VOLUME 88.1 fL (81.0-99.0); MEAN PLATELET VOLUME 8.9 fL (7.2-11.7); MONO # 1.1 K/uL (0.0-0.8); MONO % 12.4 % (0.0-10.0); NEUT # 6.1 K/uL (1.8-7.0); NEUT % 66.6 % (50.0-75.0); RBC 2.76 Mil/uL (3.80-5.20); RED CELL DISTRIBUTION WIDTH 14.1 % (11.5-14.5); WHITE BLOOD COUNT 9.1 K/uL (4.8-10.8)
[2018-01-20 06:45] LABS: ALB/GLOB RATIO 1.1 (1.0-2.1); ALBUMIN 3.3 g/dL (3.5-5.0); CALCIUM 8.4 mg/dl (8.6-10.4)
[2018-01-20] MEDS: (Novolog) Insulin Aspart, Recombinant 100 u/ml 10 ml vial SC SCH ×7 (08:34→21:47)
[2018-01-20] MEDS: Pantoprazole 40 mg EC Tab PO SCH (09:31)
[2018-01-20] MEDS: Oxycodone/Acetaminophen 5/325 mg Tab PO PRN ×2 (12:20→21:11)
[2018-01-20] MEDS: POLYETHYLENE GLYCOL 3350 17 GM/Dose PACKET PO SCH (12:20)
--- NOTE | 2018-01-20 13:27 | CP.PCM.PN ---
<Vinicius Aquino - Last Filed: 01/20/18 13:19> Subjective - Date & Time of Evaluation Date of Evaluation: 01/20/18 Time of Evaluation: 13:19 - Subjective Subjective: Medicine note for Dr Zavala Pt seen and examined at bedside. Pt still complain of soreness at left groin access site for resvascularization. Pt complains of numbness and tingling in the right lower extremity. Pt complains of pain with ambulation but is able to tolerate the activity with assistance. Pt denies cp, sob, f/c, n/v. Objective - Vital Signs/Intake and Output Vital Signs (last 24 hours): Temp Pulse Resp BP Pulse Ox 98.2 F 95 H 15 125/63 97 01/20/18 04:00 01/20/18 11:31 01/20/18 04:35 01/20/18 04:36 01/20/18 04:35 Intake and Output: 01/20/18 01/20/18 06:59 18:59 Intake Total 1935 Output Total 1000 Balance 935 - Medications Medications: Current Medications Albuterol/Ipratropium (Duoneb 3 Mg/0.5 Mg (3 Ml) Ud) 3 ml INH RQ6 [facility] Last Admin: 01/20/18 07:31 Dose: 3 ml Amlodipine Besylate (Norvasc) 2.5 mg PO DAILY [facility] Last Admin: 01/20/18 09:29 Dose: 2.5 mg Dextrose (Dextrose 50% Inj) 0 ml IV STAT PRN; Protocol PRN Reason: Hypoglycemia Protocol Dextrose (Glutose 15) 0 gm PO ONCE PRN; Protocol PRN Reason: Hypoglycemia Protocol Docusate Sodium (Colace) 100 mg PO TID [facility] Last Admin: 01/20/18 09:28 Dose: 100 mg Glucagon (Glucagen Diagnostic Kit) 0 mg IM STAT PRN; Protocol PRN Reason: Hypoglycemia Protocol Hydrochlorothiazide (Microzide) 12.5 mg PO DAILY [facility] Last Admin: 01/20/18 09:29 Dose: 12.5 mg Dextrose (Dextrose 5% In Water 1000 Ml) 1,000 mls @ 0 mls/hr IV .Q0M PRN; Protocol; Per Protocol PRN Reason: Hypoglycemia Protocol Sodium Chloride (Sodium Chloride 0.9%) 1,000 mls @ 75 mls/hr IV .[id number] [facility] Last Admin: 01/19/18 23:20 Dose: 75 mls/hr Insulin Aspart (Novolog) 0 unit SC ACHS [facility] PRN Reason: Protocol Last Admin: 01/20/18 12:20 Dose: 3 units Insulin Aspart (Novolog) 12 unit SC TIDAC [facility] Last Admin: 01/20/18 12:20 Dose: 12 units Insulin Glargine (Lantus) 30 unit SC HS [facility] Mirtazapine (Remeron) 15 mg PO DAILY [facility] Last Admin: 01/20/18 09:28 Dose: 15 mg Montelukast Sodium (Singulair) 10 mg PO DAILY [facility] Last Admin: 01/20/18 09:28 Dose: 10 mg Morphine Sulfate (Morphine) 2 mg IVP Q4 PRN PRN Reason: Pain, severe (8-10) Last Admin: 01/20/18 06:05 Dose: 2 mg Oxycodone/Acetaminophen (Percocet 5/325 Mg Tab) 1 tab PO Q6H PRN PRN Reason: Pain, severe (8-10) Stop: 01/23/18 11:09 Last Admin: 01/20/18 12:20 Dose: 1 tab Pantoprazole Sodium (Protonix Ec Tab) 40 mg PO DAILY [facility] Last Admin: 01/20/18 09:31 Dose: 40 mg Polyethylene Glycol (Miralax) 17 gm PO DAILY [facility] Last Admin: 01/20/18 12:20 Dose: 17 gm Rivaroxaban (Xarelto) 20 mg PO DAILY [facility] Last Admin: 01/20/18 09:28 Dose: 20 mg Rosuvastatin Calcium (Crestor) 10 mg PO HS [facility] Last Admin: 01/19/18 21:30 Dose: 10 mg Ticagrelor (Brilinta) 90 mg PO BID [facility] Last Admin: 01/20/18 09:28 Dose: 90 mg - Labs Labs: 01/20/18 06:07 01/20/18 06:07 PT 12.9 SECONDS (9.7-12.2) H 01/18/18 04:45 INR 1.2 01/18/18 04:45 APTT 46 SECONDS (21-34) H 01/19/18 06:17 - Constitutional Appears: Well, Non-toxic, No Acute Distress - Head Exam Head Exam: ATRAUMATIC, NORMAL INSPECTION - Eye Exam Eye Exam: EOMI, Normal appearance. absent: Scleral icterus - ENT Exam ENT Exam: Mucous Membranes Moist - Respiratory Exam Respiratory Exam: Clear to Ausculation Bilateral, NORMAL BREATHING PATTERN - Cardiovascular Exam Cardiovascular Exam: RRR, +S1, +S2 - GI/Abdominal Exam GI & Abdominal Exam: Soft, Normal Bowel Sounds. absent: Rigid, Tenderness, Mass , Pulsatile Mass - Extremities Exam Extremities Exam: Full ROM Additional comments: R pedal pulse faintly present, previously absent, resolved pallor and cold foot. right foot now warm to touch. right toes weak, 2/5 strength - Neurological Exam Neurological Exam: Alert, Awake, CN II-XII Intact, Oriented x3 - Psychiatric Exam Psychiatric exam: Normal Affect, Normal Mood - Skin Skin Exam: Normal Color, Warm. 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 -PT/OT consultation to improve neovascularization pains -encourage ambulation Constipation: -Miralax, 17gm PO Daily -IVF NS 75ml/hr DM: -glucose 245 -Last A1C 7.5 (06/28/17) -Aspart 12 unit subq TIDAC -Lantus 33 units subqHS -Accuchecks QAC and HS -Hypoglycemic protocol HTN: -Norvasc 2.5mg PO daily Asthma: -duonebs PRN PPX: -Xarelto 20mg PO daily -Protonix 40mg PO daily Dispo: Pt s/p revasc of CLINICAL PROGRAM MANAGER day 3, improving <Tanvi Zavala V - Last Filed: 01/20/18 17:55> Objective - Vital Signs/Intake and Output Vital Signs (last 24 hours): Temp Pulse Resp BP Pulse Ox 98.4 F 95 H 17 108/75 97 01/20/18 12:00 01/20/18 12:00 01/20/18 12:00 01/20/18 12:00 01/20/18 04:35 Intake and Output: 01/20/18 01/20/18 06:59 18:59 Intake Total 1935 1100 Output Total 1000 650 Balance 935 450 - Medications Medications: Current Medications Albuterol/Ipratropium (Duoneb 3 Mg/0.5 Mg (3 Ml) Ud) 3 ml INH RQ6 [facility] Last Admin: 01/20/18 13:44 Dose: 3 ml Amlodipine Besylate (Norvasc) 2.5 mg PO DAILY [facility] Last Admin: 01/20/18 09:29 Dose: 2.5 mg Dextrose (Dextrose 50% Inj) 0 ml IV STAT PRN; Protocol PRN Reason: Hypoglycemia Protocol Dextrose (Glutose 15) 0 gm PO ONCE PRN; Protocol PRN Reason: Hypoglycemia Protocol Docusate Sodium (Colace) 100 mg PO TID [facility] Last Admin: 01/20/18 17:10 Dose: 100 mg Glucagon (Glucagen Diagnostic Kit) 0 mg IM STAT PRN; Protocol PRN Reason: Hypoglycemia Protocol Hydrochlorothiazide (Microzide) 12.5 mg PO DAILY [facility] Last Admin: 01/20/18 09:29 Dose: 12.5 mg Dextrose (Dextrose 5% In Water 1000 Ml) 1,000 mls @ 0 mls/hr IV .Q0M PRN; Protocol; Per Protocol PRN Reason: Hypoglycemia Protocol Sodium Chloride (Sodium Chloride 0.9%) 1,000 mls @ 75 mls/hr IV .[id number] [facility] Last Admin: 01/20/18 13:48 Dose: 75 mls/hr Insulin Aspart (Novolog) 0 unit SC ACHS [facility] PRN Reason: Protocol Last Admin: 01/20/18 17:08 Dose: 3 units Insulin Aspart (Novolog) 12 unit SC TIDAC [facility] Last Admin: 01/20/18 17:08 Dose: 12 units Insulin Glargine (Lantus) 30 unit SC HS [facility] Mirtazapine (Remeron) 15 mg PO DAILY [facility] Last Admin: 01/20/18 09:28 Dose: 15 mg Montelukast Sodium (Singulair) 10 mg PO DAILY [facility] Last Admin: 01/20/18 09:28 Dose: 10 mg Morphine Sulfate (Morphine) 2 mg IVP Q4 PRN PRN Reason: Pain, severe (8-10) Last Admin: 01/20/18 06:05 Dose: 2 mg Oxycodone/Acetaminophen (Percocet 5/325 Mg Tab) 1 tab PO Q6H PRN PRN Reason: Pain, severe (8-10) Stop: 01/23/18 11:09 Last Admin: 01/20/18 12:20 Dose: 1 tab Pantoprazole Sodium (Protonix Ec Tab) 40 mg PO DAILY [facility] Last Admin: 01/20/18 09:31 Dose: 40 mg Polyethylene Glycol (Miralax) 17 gm PO DAILY [facility] Last Admin: 01/20/18 12:20 Dose: 17 gm Rivaroxaban (Xarelto) 20 mg PO DAILY [facility] Last Admin: 01/20/18 09:28 Dose: 20 mg Rosuvastatin Calcium (Crestor) 10 mg PO HS [facility] Last Admin: 01/19/18 21:30 Dose: 10 mg Ticagrelor (Brilinta) 90 mg PO BID [facility] Last Admin: 01/20/18 17:10 Dose: 90 mg - Labs Labs: 01/20/18 06:07 01/20/18 06:07 PT 12.9 SECONDS (9.7-12.2) H 01/18/18 04:45 INR 1.2 01/18/18 04:45 APTT 46 SECONDS (21-34) H 01/19/18 06:17 Assessment and Plan (1) Limb ischemia Status: Acute (2) PVD (peripheral vascular disease) Status: Chronic (3) IDDM (insulin dependent diabetes mellitus) Status: Chronic (4) Hypertension Status: Chronic (5) Asthma Status: Chronic (6) Constipation Status: Acute (7) Prophylactic measure Status: Acute Attending/Attestation - Attestation I have personally seen and examined this patient.: Yes I have fully participated in the care of the patient.: Yes I have reviewed all pertinent clinical information, including history, physical exam and plan: Yes Notes (Text): Patient seen, examined and case discussed with day-time resident. Patient seen this morning. Patient reports pain was improved upon percocet dose last night. Patient participated with physical therapy today and attempt to get out of bed to chair. Patient has not had a bowel movement for past 3 days. We have started her on stool softeners as yesterday. We have started Miralax on her. I spoke with Dr. Darden, requesting for arterial duplex of the right lower extremity given recent vascularization, agrees with PT and possible JAMIE. 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 I have placed case management referral for JAMIE, preferably under Dr. Drarian Young who is her PMD. Assessment and Plan (1) Limb ischemia Assessment & Plan: Dr. Darden (data integrity analyst) on case-->help appreciated * Angiography (01/17/18): short segment occlusion of distal external iliac artery extending to the proximal common femoral artery. Multifocal areas of severe stenosis of superficial femoral and popliteral arterieis. Lower lower extremities: indwelling proximal/mid superficial femoral artery stent which is patent. Multifocal areas of moderate stenosis involving the superficial femorial artery with mild to moderate stenosis of the popliteal artery. posterior tibial artery. * Successful atherectomy angioplasty with right common femoral artery thrombotic occlusion (01/17/18): * Patient switched from Heparin drip to Xarelto on 01/19/18 * F/u arterial duplex of right lower extremity; since pedal pulse is not palpable and unable to discern with doppler. Medication: * Xarelto 20mg PO Daily * Brilinta 90mg PO BID * pain prn: percocet 1 tab PO q6h PRN severe pain. Status: Acute (2) PVD (peripheral vascular disease) Assessment & Plan: * Known to both Dr. Guzman and Dr. Darden * Cardiology to determine next step for future intervention in regards to right lower extremity Status: Chronic (3) IDDM (insulin dependent diabetes mellitus) Assessment & Plan: * Aspart 12 unit subq TIDAC * Lantus 33 units subqHS * Accuchecks QAC and HS * Hypoglycemic protocol * Hgba1c: 7.7 (06/28/17) Status: Chronic (4) Hypertension Assessment & Plan: * Patient takes Norvasc 2.5mg PO daily and HCTZ 12.5mg PO daily as outpatient. * We have resumed during hospitalization Status: Chronic (5) Asthma Assessment & Plan: * Duonebs PRN shortness of breathe * Singulair 10mg PO daily Status: Chronic (6) Constipation Assessment & Plan: * start colace 100mg PO TID * Miralax daily * monitor for bowel movement Status: Acute (7) Chronic Renal insufficiency Assessment & Plan: * Monitor Cr. * On gentle IV hydration * GFR: 40s range (8) Prophylactic measure Assessment & Plan: * Xarelto 20mg PO daily * Protonix 40mg PO daily * PT/OT eval * out of bed to chair * PT is recommending for JAMIE. Status: Acute
[2018-01-20] MEDS: Sodium Chloride 0.9% 1,000 ML IV SCH (13:48)
--- NOTE | 2018-01-20 16:55 | CP.PCM.CON ---
History of Present Illness - History of Present Illness History of Present Illness: Consultation for PVOD s/p atherectomy/PHOTOENGRAVING ETCHER of right SFA HPI: 77-year-old female with past medical history significant for hypertension diabetes hyperlipidemia status post peripheral angiogram done on January 01 [facility] who presented to [facility] with complaints of worsening right lower extremity pain and discomfort. According to the patient's daughter her symptoms have gotten progressively worsened I had ordered a CTA of her arterial lower extremities which showed common femoral artery was 100% occluded on evaluation in the emergency room at [facility] she was noted to have cold right lower extremity below the knee she was emergently transferred over to [facility] for an emergent limb salvage procedure initial angiogram showed 100% occluded common femoral artery for which she underwent a angioplasty with severe thrombus atheromatous and a ruptured plaque with the endothelial lining the structure which was successfully atherectomized using a Silver [employer]OTE[employer] [place] L SX device subsequently angioplasty with a drug-coated balloon patient had severe distal vessel infragenicular disease which was left untreated she was subsequently transferred over to the ICU on IV heparin drip secondary to severe distal small vessel disease continued to have severe excruciating pains for ongoing limb ischemia for about 2 weeks prior to this presentation. She was kept overnight in the ICU and is being monitored in 24 hours post procedure. Review of Systems - Review of Systems Systems not reviewed;Unavailable: Acuity of Condition - Constitutional Constitutional: As Per HPI - EENT Eyes: As Per HPI Ears: As Per HPI Nose/Mouth/Throat: As Per HPI - Breasts Breasts: As Per HPI - Cardiovascular Cardiovascular: As Per HPI - Respiratory Respiratory: As Per HPI - Gastrointestinal Gastrointestinal: As Per HPI - Genitourinary Genitourinary: As Per HPI - Reproductive: Female Reproductive:Female: As Per HPI - Menstruation Menstruation: As Per HPI - Musculoskeletal Musculoskeletal: As Per HPI - Integumentary Integumentary: As Per HPI - Neurological Neurological: As Per HPI - Psychiatric Psychiatric: As Per HPI - Endocrine Endocrine: As Per HPI - Hematologic/Lymphatic Hematologic: As Per HPI Past Patient History - Infectious Disease Hx of Infectious Diseases: None - Tetanus Immunizations Tetanus Immunization: Unknown - Past Medical History & Family History Past Medical History?: Yes - Past Social History Smoking Status: Former Smoker - CARDIAC Hx Congestive Heart Failure: No Hx Hypercholesterolemia: No Hx Hypertension: Yes - PULMONARY Hx Chronic Obstructive Pulmonary Disease (COPD): Yes - NEUROLOGICAL Hx Neurological Disorder: No - HEENT Hx HEENT Problems: Yes Other/Comment: Allergic Rhinitis - RENAL Hx Chronic Kidney Disease: No - ENDOCRINE/METABOLIC Hx Diabetes Mellitus Type 2: Yes Hx Hypothyroidism: No - HEMATOLOGICAL/ONCOLOGICAL Hx Anemia: Yes - INTEGUMENTARY Hx Dermatological Problems: No - MUSCULOSKELETAL/RHEUMATOLOGICAL Hx Arthritis: Yes - GASTROINTESTINAL Hx Gastrointestinal Disorders: No - GENITOURINARY/GYNECOLOGICAL Hx Genitourinary Disorders: No - PSYCHIATRIC Hx Anxiety: Yes Hx Depression: Yes - SURGICAL HISTORY Hx Surgeries: Yes Hx Angiogram: Yes (As per pt, done by Dr. Yovani Guzman) Hx Orthopedic Surgery: Yes (left arm surgery) - ANESTHESIA Hx Anesthesia: Yes Hx Anesthesia Reactions: No Hx Malignant Hyperthermia: No Has any member of the family had a problem w/ anesthesia?: No Meds Allergies/Adverse Reactions: Allergies Allergy/AdvReac Type Severity Reaction Status Date / Time aspirin AdvReac RASH Verified 06/09/16 13:11 - Medications Medications: Current Medications Albuterol/Ipratropium (Duoneb 3 Mg/0.5 Mg (3 Ml) Ud) 3 ml INH RQ6 [facility] Last Admin: 01/20/18 13:44 Dose: 3 ml Amlodipine Besylate (Norvasc) 2.5 mg PO DAILY [facility] Last Admin: 01/20/18 09:29 Dose: 2.5 mg Dextrose (Dextrose 50% Inj) 0 ml IV STAT PRN; Protocol PRN Reason: Hypoglycemia Protocol Dextrose (Glutose 15) 0 gm PO ONCE PRN; Protocol PRN Reason: Hypoglycemia Protocol Docusate Sodium (Colace) 100 mg PO TID [facility] Last Admin: 01/20/18 13:49 Dose: 100 mg Glucagon (Glucagen Diagnostic Kit) 0 mg IM STAT PRN; Protocol PRN Reason: Hypoglycemia Protocol Hydrochlorothiazide (Microzide) 12.5 mg PO DAILY [facility] Last Admin: 01/20/18 09:29 Dose: 12.5 mg Dextrose (Dextrose 5% In Water 1000 Ml) 1,000 mls @ 0 mls/hr IV .Q0M PRN; Protocol; Per Protocol PRN Reason: Hypoglycemia Protocol Sodium Chloride (Sodium Chloride 0.9%) 1,000 mls @ 75 mls/hr IV .[id number] [facility] Last Admin: 01/20/18 13:48 Dose: 75 mls/hr Insulin Aspart (Novolog) 0 unit SC ACHS [facility] PRN Reason: Protocol Last Admin: 01/20/18 12:20 Dose: 3 units Insulin Aspart (Novolog) 12 unit SC TIDAC [facility] Last Admin: 01/20/18 12:20 Dose: 12 units Insulin Glargine (Lantus) 30 unit SC HS [facility] Mirtazapine (Remeron) 15 mg PO DAILY [facility] Last Admin: 01/20/18 09:28 Dose: 15 mg Montelukast Sodium (Singulair) 10 mg PO DAILY [facility] Last Admin: 01/20/18 09:28 Dose: 10 mg Morphine Sulfate (Morphine) 2 mg IVP Q4 PRN PRN Reason: Pain, severe (8-10) Last Admin: 01/20/18 06:05 Dose: 2 mg Oxycodone/Acetaminophen (Percocet 5/325 Mg Tab) 1 tab PO Q6H PRN PRN Reason: Pain, severe (8-10) Stop: 01/23/18 11:09 Last Admin: 01/20/18 12:20 Dose: 1 tab Pantoprazole Sodium (Protonix Ec Tab) 40 mg PO DAILY [facility] Last Admin: 01/20/18 09:31 Dose: 40 mg Polyethylene Glycol (Miralax) 17 gm PO DAILY [facility] Last Admin: 01/20/18 12:20 Dose: 17 gm Rivaroxaban (Xarelto) 20 mg PO DAILY [facility] Last Admin: 01/20/18 09:28 Dose: 20 mg Rosuvastatin Calcium (Crestor) 10 mg PO [facility] Last Admin: 01/19/18 21:30 Dose: 10 mg Ticagrelor (Brilinta) 90 mg PO BID [facility] Last Admin: 01/20/18 09:28 Dose: 90 mg Physical Exam - Constitutional Appears: Toxic, In Acute Distress - Head Exam Head Exam: ATRAUMATIC, NORMAL INSPECTION, NORMOCEPHALIC - Eye Exam Eye Exam: EOMI, Normal appearance, PERRL Pupil Exam: NORMAL ACCOMODATION, PERRL - ENT Exam ENT Exam: Mucous Membranes Dry, Normal Exam - Neck Exam Neck exam: Positive for: Normal Inspection - Respiratory Exam Respiratory Exam: Clear to Auscultation Bilateral, NORMAL BREATHING PATTERN - Cardiovascular Exam Cardiovascular Exam: REGULAR RHYTHM, Systolic Murmur - GI/Abdominal Exam GI & Abdominal Exam: Normal Bowel Sounds, Soft. absent: Tenderness - Extremities Exam Extremities exam: Positive for: normal inspection Additional comments: pedal pulses absent faint on doppler RLE warm to touch - Back Exam Back exam: NORMAL INSPECTION - Neurological Exam Neurological exam: Alert, CN II-XII Intact, Oriented x3, Reflexes Normal - Psychiatric Exam Psychiatric exam: Normal Affect, Normal Mood - Skin Skin Exam: Dry, Intact, Normal Color, Warm Results - Vital Signs Recent Vital Signs: Last Vital Signs Temp 98.4 F 01/20/18 12:00 Pulse 95 H 01/20/18 12:00 Resp 17 01/20/18 12:00 BP 108/75 01/20/18 12:00 Pulse Ox 97 01/20/18 04:35 - Labs Result Diagrams: 01/20/18 06:07 01/20/18 06:07 Labs: Laboratory Results - last 24 hr 01/19/18 01/19/18 01/20/18 16:06 21:27 06:07 WBC 9.1 RBC 2.76 L Hgb 8.3 L Hct 24.3 L MCV 88.1 MCH 30.0 MCHC 34.0 RDW 14.1 Plt Count 212 MPV 8.9 Neut % (Auto) 66.6 Lymph % (Auto) 17.3 L [place] % (Auto) 12.4 H Eos % (Auto) 3.1 Baso % (Auto) 0.6 Neut # (Auto) 6.1 Lymph # (Auto) 1.6 [place] # (Auto) 1.1 H Eos # (Auto) 0.3 Baso # (Auto) 0.1 Sodium Potassium Chloride Carbon Dioxide Anion Gap BUN Creatinine Est GFR ( Amer) Est GFR (Non-Af Amer) POC Glucose (mg/dL) 88 195 H Random Glucose Calcium Phosphorus Magnesium Total Bilirubin AST ALT Alkaline Phosphatase Total Protein Albumin Globulin Albumin/Globulin Ratio 01/20/18 01/20/18 01/20/18 06:07 07:27 11:44 WBC RBC Hgb Hct MCV MCH MCHC RDW Plt Count MPV Neut % (Auto) Lymph % (Auto) [place] % (Auto) Eos % (Auto) Baso % (Auto) Neut # (Auto) Lymph # (Auto) [place] # (Auto) Eos # (Auto) Baso # (Auto) Sodium 140 Potassium 4.1 Chloride 104 Carbon Dioxide 25 Anion Gap 15 BUN 24 H Creatinine 1.3 H Est GFR ( Amer) 48 Est GFR (Non-Af Amer) 40 POC Glucose (mg/dL) 227 H 248 H Random Glucose 212 H Calcium 8.4 L Phosphorus 3.1 Magnesium 2.3 Total Bilirubin 0.3 AST 57 H ALT 38 Alkaline Phosphatase 62 Total Protein 6.3 Albumin 3.3 L Globulin 3.0 Albumin/Globulin Ratio 1.1 01/20/18 16:16 WBC RBC Hgb Hct MCV MCH MCHC RDW Plt Count MPV Neut % (Auto) Lymph % (Auto) [place] % (Auto) Eos % (Auto) Baso % (Auto) Neut # (Auto) Lymph # (Auto) [place] # (Auto) Eos # (Auto) Baso # (Auto) Sodium Potassium Chloride Carbon Dioxide Anion Gap BUN Creatinine Est GFR ( Amer) Est GFR (Non-Af Amer) POC Glucose (mg/dL) 360 H Random Glucose Calcium Phosphorus Magnesium Total Bilirubin AST ALT Alkaline Phosphatase Total Protein Albumin Globulin Albumin/Globulin Ratio Assessment & Plan (1) S/P angioplasty Status: Acute (2) Limb ischemia Assessment and Plan: s/p atherectomy/PHOTOENGRAVING ETCHER of R 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
--- NOTE | 2018-01-20 16:59 | CP.PCM.PN ---
Objective - Vital Signs/Intake and Output Vital Signs (last 24 hours): Temp Pulse Resp BP Pulse Ox 98.4 F 95 H 17 108/75 97 01/20/18 12:00 01/20/18 12:00 01/20/18 12:00 01/20/18 12:00 01/20/18 04:35 Intake and Output: 01/20/18 01/20/18 06:59 18:59 Intake Total 1935 1100 Output Total 1000 650 Balance 935 450 - Medications Medications: Current Medications Albuterol/Ipratropium (Duoneb 3 Mg/0.5 Mg (3 Ml) Ud) 3 ml INH RQ6 [facility] Last Admin: 01/20/18 13:44 Dose: 3 ml Amlodipine Besylate (Norvasc) 2.5 mg PO DAILY [facility] Last Admin: 01/20/18 09:29 Dose: 2.5 mg Dextrose (Dextrose 50% Inj) 0 ml IV STAT PRN; Protocol PRN Reason: Hypoglycemia Protocol Dextrose (Glutose 15) 0 gm PO ONCE PRN; Protocol PRN Reason: Hypoglycemia Protocol Docusate Sodium (Colace) 100 mg PO TID [facility] Last Admin: 01/20/18 13:49 Dose: 100 mg Glucagon (Glucagen Diagnostic Kit) 0 mg IM STAT PRN; Protocol PRN Reason: Hypoglycemia Protocol Hydrochlorothiazide (Microzide) 12.5 mg PO DAILY [facility] Last Admin: 01/20/18 09:29 Dose: 12.5 mg Dextrose (Dextrose 5% In Water 1000 Ml) 1,000 mls @ 0 mls/hr IV .Q0M PRN; Protocol; Per Protocol PRN Reason: Hypoglycemia Protocol Sodium Chloride (Sodium Chloride 0.9%) 1,000 mls @ 75 mls/hr IV .[id number] [facility] Last Admin: 01/20/18 13:48 Dose: 75 mls/hr Insulin Aspart (Novolog) 0 unit SC ACHS [facility] PRN Reason: Protocol Last Admin: 01/20/18 12:20 Dose: 3 units Insulin Aspart (Novolog) 12 unit SC TIDAC [facility] Last Admin: 01/20/18 12:20 Dose: 12 units Insulin Glargine (Lantus) 30 unit SC HS [facility] Mirtazapine (Remeron) 15 mg PO DAILY [facility] Last Admin: 01/20/18 09:28 Dose: 15 mg Montelukast Sodium (Singulair) 10 mg PO DAILY [facility] Last Admin: 01/20/18 09:28 Dose: 10 mg Morphine Sulfate (Morphine) 2 mg IVP Q4 PRN PRN Reason: Pain, severe (8-10) Last Admin: 01/20/18 06:05 Dose: 2 mg Oxycodone/Acetaminophen (Percocet 5/325 Mg Tab) 1 tab PO Q6H PRN PRN Reason: Pain, severe (8-10) Stop: 01/23/18 11:09 Last Admin: 01/20/18 12:20 Dose: 1 tab Pantoprazole Sodium (Protonix Ec Tab) 40 mg PO DAILY [facility] Last Admin: 01/20/18 09:31 Dose: 40 mg Polyethylene Glycol (Miralax) 17 gm PO DAILY [facility] Last Admin: 01/20/18 12:20 Dose: 17 gm Rivaroxaban (Xarelto) 20 mg PO DAILY [facility] Last Admin: 01/20/18 09:28 Dose: 20 mg Rosuvastatin Calcium (Crestor) 10 mg PO HS [facility] Last Admin: 01/19/18 21:30 Dose: 10 mg Ticagrelor (Brilinta) 90 mg PO BID [facility] Last Admin: 01/20/18 09:28 Dose: 90 mg - Labs Labs: 01/20/18 06:07 01/20/18 06:07 PT 12.9 SECONDS (9.7-12.2) H 01/18/18 04:45 INR 1.2 01/18/18 04:45 APTT 46 SECONDS (21-34) H 01/19/18 06:17 Assessment and Plan (1) S/P angioplasty Status: Acute (2) Limb ischemia Status: Acute (3) Hypertension Status: Chronic (4) PVD (peripheral vascular disease) Status: Chronic
[2018-01-20] MEDS: (Lantus) Insulin Glargine, Recombinant SC SCH (21:47)
[2018-01-21] MEDS: Albuterol-Ipratrop 3 mg / 0.5 (3 ml) UD INH SCH ×4 (01:12→19:28)
[2018-01-21] MEDS: Sodium Chloride 0.9% 1,000 ML IV SCH ×3 (02:47→21:36)
[2018-01-21 08:13] LABS: BASO # 0.1 K/uL (0.0-0.2); BASO % 0.6 % (0.0-2.0); EOS # 0.7 K/uL (0.0-0.7); EOS % 6.7 % (0.0-4.0); LYMPH # 2.8 K/uL (1.0-4.3); LYMPH % 25.6 % (20.0-40.0); MEAN CELL VOLUME 89.1 fL (81.0-99.0); MEAN CORPUSCULAR HEMOGLOBIN 29.8 pg (27.0-31.0); MEAN CORPUSCULAR HGB CONC 33.5 g/dL (33.0-37.0); MEAN PLATELET VOLUME 8.7 fL (7.2-11.7); MONO # 1.3 K/uL (0.0-0.8); MONO % 11.5 % (0.0-10.0); NEUT % 55.6 % (50.0-75.0); RBC 3.03 Mil/uL (3.80-5.20); RED CELL DISTRIBUTION WIDTH 14.5 % (11.5-14.5); WHITE BLOOD COUNT 10.9 K/uL (4.8-10.8)
[2018-01-21 08:19] LABS: INR 1.2; PROTHROMBIN TIME 13.2 SECONDS (9.7-12.2)
[2018-01-21] MEDS: (Novolog) Insulin Aspart, Recombinant 100 u/ml 10 ml vial SC SCH ×7 (08:30→21:33)
[2018-01-21 08:49] LABS: ALB/GLOB RATIO 1.1 (1.0-2.1); ALBUMIN 3.7 g/dL (3.5-5.0); CALCIUM 9.1 mg/dl (8.6-10.4)
--- NOTE | 2018-01-21 09:07 | CP.PCM.PN ---
<Vinicius Aquino - Last Filed: 01/21/18 15:11> Subjective - Date & Time of Evaluation Date of Evaluation: 01/21/18 Time of Evaluation: 09:07 - Subjective Subjective: Pt seen and examined at bedside. Pt reports no new syptoms overnight. Pt reports the groin and leg pain is persistent in nature. Pt is cooperative in daily mobilization and understands importance to begin ambulating as much as tolerated. Pt denies cp, sob, n/v, f/c. Pt agrees to comply with sub acute rehab regimen upon placement. Objective - Vital Signs/Intake and Output Vital Signs (last 24 hours): Temp Pulse Resp BP Pulse Ox 98.9 F 113 H 20 127/57 L 96 01/20/18 23:50 01/21/18 07:47 01/20/18 23:50 01/20/18 23:50 01/20/18 23:50 Intake and Output: 01/21/18 01/21/18 06:59 18:59 Intake Total 720 Output Total 500 Balance -500 720 - Medications Medications: Current Medications Albuterol/Ipratropium (Duoneb 3 Mg/0.5 Mg (3 Ml) Ud) 3 ml INH RQ6 [facility] Last Admin: 01/21/18 07:10 Dose: 3 ml Amlodipine Besylate (Norvasc) 2.5 mg PO DAILY [facility] Last Admin: 01/20/18 09:29 Dose: 2.5 mg Dextrose (Dextrose 50% Inj) 0 ml IV STAT PRN; Protocol PRN Reason: Hypoglycemia Protocol Dextrose (Glutose 15) 0 gm PO ONCE PRN; Protocol PRN Reason: Hypoglycemia Protocol Docusate Sodium (Colace) 100 mg PO TID [facility] Last Admin: 01/20/18 17:10 Dose: 100 mg Glucagon (Glucagen Diagnostic Kit) 0 mg IM STAT PRN; Protocol PRN Reason: Hypoglycemia Protocol Hydrochlorothiazide (Microzide) 12.5 mg PO DAILY [facility] Last Admin: 01/20/18 09:29 Dose: 12.5 mg Dextrose (Dextrose 5% In Water 1000 Ml) 1,000 mls @ 0 mls/hr IV .Q0M PRN; Protocol; Per Protocol PRN Reason: Hypoglycemia Protocol Sodium Chloride (Sodium Chloride 0.9%) 1,000 mls @ 75 mls/hr IV .[id number] [facility] Last Admin: 01/21/18 02:47 Dose: 75 mls/hr Insulin Aspart (Novolog) 0 unit SC ACHS [facility] PRN Reason: Protocol Last Admin: 01/21/18 08:30 Dose: 2 units Insulin Aspart (Novolog) 12 unit SC TIDAC [facility] Last Admin: 01/21/18 08:30 Dose: 12 units Insulin Glargine (Lantus) 30 unit SC HS [facility] Last Admin: 01/20/18 21:47 Dose: 30 u Mirtazapine (Remeron) 15 mg PO DAILY [facility] Last Admin: 01/20/18 09:28 Dose: 15 mg Montelukast Sodium (Singulair) 10 mg PO DAILY [facility] Last Admin: 01/20/18 09:28 Dose: 10 mg Morphine Sulfate (Morphine) 2 mg IVP Q4 PRN PRN Reason: Pain, severe (8-10) Last Admin: 01/21/18 02:43 Dose: 2 mg Oxycodone/Acetaminophen (Percocet 5/325 Mg Tab) 1 tab PO Q6H PRN PRN Reason: Pain, severe (8-10) Stop: 01/23/18 11:09 Last Admin: 01/20/18 21:11 Dose: 1 tab Pantoprazole Sodium (Protonix Ec Tab) 40 mg PO DAILY [facility] Last Admin: 01/20/18 09:31 Dose: 40 mg Polyethylene Glycol (Miralax) 17 gm PO DAILY [facility] Last Admin: 01/20/18 12:20 Dose: 17 gm Rivaroxaban (Xarelto) 20 mg PO DAILY [facility] Last Admin: 01/20/18 09:28 Dose: 20 mg Rosuvastatin Calcium (Crestor) 10 mg PO HS [facility] Last Admin: 01/20/18 21:22 Dose: 10 mg Ticagrelor (Brilinta) 90 mg PO BID [facility] Last Admin: 01/20/18 17:10 Dose: 90 mg - Labs Labs: 01/21/18 08:02 01/21/18 08:02 PT 13.2 SECONDS (9.7-12.2) H 01/21/18 08:02 INR 1.2 01/21/18 08:02 APTT 46 SECONDS (21-34) H 01/19/18 06:17 - Additional Findings Additional findings: - Constitutional Appears: Well, Non-toxic, No Acute Distress - Head Exam Head Exam: ATRAUMATIC, NORMAL INSPECTION - Eye Exam Eye Exam: EOMI, Normal appearance. absent: Scleral icterus - ENT Exam ENT Exam: Mucous Membranes Moist - Respiratory Exam Respiratory Exam: Clear to Ausculation Bilateral, NORMAL BREATHING PATTERN - Cardiovascular Exam Cardiovascular Exam: RRR, +S1, +S2 - GI/Abdominal Exam GI & Abdominal Exam: Soft, Normal Bowel Sounds. absent: Rigid, Tenderness, Mass , Pulsatile Mass - Extremities Exam Extremities Exam: Full ROM Additional comments: R pedal pulse faintly present, previously absent, resolved pallor and cold foot. right foot now warm to touch. right toes weak, 2/5 strength - Neurological Exam Neurological Exam: Alert, Awake, CN II-XII Intact, Oriented x3 - Psychiatric Exam Psychiatric exam: Normal Affect, Normal Mood - Skin Skin Exam: Normal Color, Warm. 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 Pt Pending Acute Rehab placement ( preference [facility]) <Sotero Braswell - Last Filed: 01/21/18 18:35> Objective - Vital Signs/Intake and Output Vital Signs (last 24 hours): Temp Pulse Resp BP Pulse Ox 97.9 F 89 20 150/73 100 01/21/18 15:15 01/21/18 15:15 01/21/18 15:15 01/21/18 15:01/21/18 15:15 Intake and Output: 01/21/18 01/21/18 06:59 18:59 Intake Total 720 Output Total 500 Balance -500 720 - Medications Medications: Current Medications Albuterol/Ipratropium (Duoneb 3 Mg/0.5 Mg (3 Ml) Ud) 3 ml INH RQ6 [facility] Last Admin: 01/21/18 13:37 Dose: 3 ml Amlodipine Besylate (Norvasc) 2.5 mg PO DAILY [facility] Last Admin: 01/21/18 09:08 Dose: 2.5 mg Dextrose (Dextrose 50% Inj) 0 ml IV STAT PRN; Protocol PRN Reason: Hypoglycemia Protocol Dextrose (Glutose 15) 0 gm PO ONCE PRN; Protocol PRN Reason: Hypoglycemia Protocol Docusate Sodium (Colace) 100 mg PO TID [facility] Last Admin: 01/21/18 17:32 Dose: 100 mg Glucagon (Glucagen Diagnostic Kit) 0 mg IM STAT PRN; Protocol PRN Reason: Hypoglycemia Protocol Hydrochlorothiazide (Microzide) 12.5 mg PO DAILY [facility] Last Admin: 01/21/18 09:08 Dose: 12.5 mg Dextrose (Dextrose 5% In Water 1000 Ml) 1,000 mls @ 0 mls/hr IV .Q0M PRN; Protocol; Per Protocol PRN Reason: Hypoglycemia Protocol Sodium Chloride (Sodium Chloride 0.9%) 1,000 mls @ 75 mls/hr IV .[id number] [facility] Last Admin: 01/21/18 02:47 Dose: 75 mls/hr Insulin Aspart (Novolog) 0 unit SC ACHS [facility] PRN Reason: Protocol Last Admin: 01/21/18 17:33 Dose: 2 units Insulin Aspart (Novolog) 12 unit SC TIDAC [facility] Last Admin: 01/21/18 17:00 Dose: Not Given Insulin Glargine (Lantus) 30 unit SC HS [facility] Last Admin: 01/20/18 21:47 Dose: 30 u Mirtazapine (Remeron) 15 mg PO DAILY [facility] Last Admin: 01/21/18 09:08 Dose: 15 mg Montelukast Sodium (Singulair) 10 mg PO DAILY [facility] Last Admin: 01/21/18 09:07 Dose: 10 mg Morphine Sulfate (Morphine) 2 mg IVP Q4 PRN PRN Reason: Pain, severe (8-10) Last Admin: 01/21/18 02:43 Dose: 2 mg Oxycodone/Acetaminophen (Percocet 5/325 Mg Tab) 1 tab PO Q6H PRN PRN Reason: Pain, severe (8-10) Stop: 01/23/18 11:09 Last Admin: 01/21/18 17:42 Dose: 1 tab Pantoprazole Sodium (Protonix Ec Tab) 40 mg PO DAILY [facility] Last Admin: 01/21/18 09:08 Dose: 40 mg Polyethylene Glycol (Miralax) 17 gm PO DAILY [facility] Last Admin: 01/21/18 09:08 Dose: 17 gm Rivaroxaban (Xarelto) 20 mg PO DAILY [facility] Last Admin: 01/21/18 09:08 Dose: 20 mg Rosuvastatin Calcium (Crestor) 10 mg PO HS [facility] Last Admin: 01/20/18 21:22 Dose: 10 mg Ticagrelor (Brilinta) 90 mg PO BID [facility] Last Admin: 01/21/18 17:32 Dose: 90 mg - Labs Labs: 01/21/18 08:02 01/21/18 08:02 PT 13.2 SECONDS (9.7-12.2) H 01/21/18 08:02 INR 1.2 01/21/18 08:02 APTT 46 SECONDS (21-34) H 01/19/18 06:17 Attending/Attestation - Attestation I have personally seen and examined this patient.: Yes I have fully participated in the care of the patient.: Yes I have reviewed all pertinent clinical information, including history, physical exam and plan: Yes Notes (Text): 01/21/18 18:24 Patient was seen and examined at 11:00 01/21/18 671 A This is the first time that I am seeing this patient Care of this patient was gone over in detail with resident Dr. Aquino. Also on ROS: She did move her bowels today Pain in the right inner thigh and right calf that is throbbing in nature Also on Exam: Right lower leg is slightly cooler to the touch when compared to the left I could not palpate any pedal pulses bilaterally There is NO discoloration of the lower legs/toes that was noted Capillary refill is 3 seconds on all toes bilaterally Assessment and Plan (1) Limb ischemia Assessment & Plan: Dr. Darden (cat wagon operator) on case-->help appreciated * Angiography (01/17/18): short segment occlusion of distal external iliac artery extending to the proximal common femoral artery. Multifocal areas of severe stenosis of superficial femoral and popliteral arterieis. Lower lower extremities: indwelling proximal/mid superficial femoral artery stent which is patent. Multifocal areas of moderate stenosis involving the superficial femorial artery with mild to moderate stenosis of the popliteal artery. posterior tibial artery. * Successful atherectomy angioplasty with right common femoral artery thrombotic occlusion (01/17/18): * Patient switched from Heparin drip to Xarelto on 01/19/18 * F/u Arterial Duplex of Right Lower Extremity; since pedal pulse is not palpable and unable to discern with doppler. Medication: * Xarelto 20mg PO Daily * Brilinta 90mg PO BID * Percocet 1 tab PO q6h PRN severe pain. Status: Acute (2) PVD (peripheral vascular disease) Assessment & Plan: * Known to both Dr. Guzman and Dr. Darden * Cardiology to determine next step for future intervention in regards to right lower extremity Status: Chronic (3) IDDM (insulin dependent diabetes mellitus) Assessment & Plan: * Aspart 12 unit SC TIDAC * Lantus 30 units SC HS * Accuchecks QAC and HS * Hypoglycemic protocol * Hgba1c: 7.7 (06/28/17) Status: Chronic (4) Hypertension Assessment & Plan: * Norvasc 2.5mg PO daily and HCTZ 12.5mg PO daily as outpatient and these have been continued Status: Chronic (5) Asthma Assessment & Plan: * Duonebs PRN shortness of breathe * Singulair 10mg PO daily Status: Chronic (6) Constipation Assessment & Plan: * Colace 100mg PO TID * Miralax daily * Had bowel movement 01/21/18 Status: Acute (7) Chronic Renal insufficiency Assessment & Plan: * Monitor Cr. * On gentle IV hydration: NS at 75 ml/hour * GFR: 40s range (8) Prophylactic measure Assessment & Plan: * Xarelto 20mg PO daily * Protonix 40mg PO daily * PT/OT eval * Out of bed to chair * PT is recommending for [facility]: patient would prefer [facility]. Spoke with Medical Record Coder Yen and Windows Server Engineer Nicole and they will be working on this. Status: Acute Sotero Braswell D.O.
[2018-01-21] MEDS: Pantoprazole 40 mg EC Tab PO SCH (09:08)
[2018-01-21] MEDS: POLYETHYLENE GLYCOL 3350 17 GM/Dose PACKET PO SCH (09:08)
--- NOTE | 2018-01-21 10:00 | CP.PCM.PN ---
Subjective - Date & Time of Evaluation Date of Evaluation: 01/21/18 Time of Evaluation: 08:00 - Subjective Subjective: Ramy Martinez, PGY1 Cardiology Progress Note for Dr. Darden Patient was seen and examined at bedside this morning. Language interpretation was done by off-site acquisition specialist. No changes overnight. Patient denied lightheadness, dizziness, chest pain, palpitations, shortness of breath, nausea , vomiting and diarrhea. Patient endorses right lower extremity pain, rated at a 9/10. Patient says that she is worried that she will be unable to return to daily normal functioning because of her legs. Patient was explained that she should consistently work with physical therapy in order to see improvement with her functional capacity. Explained to patient that because of the total occlusion of the right GARNETT MECHANIC prior to procedure, her muscles are severely atrophied and her current complaints are expected, however, she will continue to be monitored. She is no longer on Heparin gtt. Patient was worried about developing clots in her legs post-procedure and was reassured that along side frequent ambulation, she is currently on Xarelto and Brilinta for ppx. A full 12 point ROS was conducted and unremarkable except as stated above. Objective - Vital Signs/Intake and Output Vital Signs (last 24 hours): Temp Pulse Resp BP Pulse Ox 98.9 F 110 H 20 149/68 96 01/20/18 23:50 01/21/18 09:00 01/20/18 23:50 01/21/18 09:00 01/20/18 23:50 Intake and Output: 01/21/18 01/21/18 06:59 18:59 Intake Total 720 Output Total 500 Balance -500 720 - Medications Medications: Current Medications Albuterol/Ipratropium (Duoneb 3 Mg/0.5 Mg (3 Ml) Ud) 3 ml INH RQ6 [facility] Last Admin: 01/21/18 07:10 Dose: 3 ml Amlodipine Besylate (Norvasc) 2.5 mg PO DAILY [facility] Last Admin: 01/21/18 09:08 Dose: 2.5 mg Dextrose (Dextrose 50% Inj) 0 ml IV STAT PRN; Protocol PRN Reason: Hypoglycemia Protocol Dextrose (Glutose 15) 0 gm PO ONCE PRN; Protocol PRN Reason: Hypoglycemia Protocol Docusate Sodium (Colace) 100 mg PO TID [facility] Last Admin: 01/21/18 09:08 Dose: 100 mg Glucagon (Glucagen Diagnostic Kit) 0 mg IM STAT PRN; Protocol PRN Reason: Hypoglycemia Protocol Hydrochlorothiazide (Microzide) 12.5 mg PO DAILY [facility] Last Admin: 01/21/18 09:08 Dose: 12.5 mg Dextrose (Dextrose 5% In Water 1000 Ml) 1,000 mls @ 0 mls/hr IV .Q0M PRN; Protocol; Per Protocol PRN Reason: Hypoglycemia Protocol Sodium Chloride (Sodium Chloride 0.9%) 1,000 mls @ 75 mls/hr IV .[id number] [facility] Last Admin: 01/21/18 02:47 Dose: 75 mls/hr Insulin Aspart (Novolog) 0 unit SC ACHS [facility] PRN Reason: Protocol Last Admin: 01/21/18 08:30 Dose: 2 units Insulin Aspart (Novolog) 12 unit SC TIDAC [facility] Last Admin: 01/21/18 08:30 Dose: 12 units Insulin Glargine (Lantus) 30 unit SC HS [facility] Last Admin: 01/20/18 21:47 Dose: 30 u Mirtazapine (Remeron) 15 mg PO DAILY [facility] Last Admin: 01/21/18 09:08 Dose: 15 mg Montelukast Sodium (Singulair) 10 mg PO DAILY [facility] Last Admin: 01/21/18 09:07 Dose: 10 mg Morphine Sulfate (Morphine) 2 mg IVP Q4 PRN PRN Reason: Pain, severe (8-10) Last Admin: 01/21/18 02:43 Dose: 2 mg Oxycodone/Acetaminophen (Percocet 5/325 Mg Tab) 1 tab PO Q6H PRN PRN Reason: Pain, severe (8-10) Stop: 01/23/18 11:09 Last Admin: 01/20/18 21:11 Dose: 1 tab Pantoprazole Sodium (Protonix Ec Tab) 40 mg PO DAILY [facility] Last Admin: 01/21/18 09:08 Dose: 40 mg Polyethylene Glycol (Miralax) 17 gm PO DAILY [facility] Last Admin: 01/21/18 09:08 Dose: 17 gm Rivaroxaban (Xarelto) 20 mg PO DAILY [facility] Last Admin: 01/21/18 09:08 Dose: 20 mg Rosuvastatin Calcium (Crestor) 10 mg PO [facility] Last Admin: 01/20/18 21:22 Dose: 10 mg Ticagrelor (Brilinta) 90 mg PO BID [facility] Last Admin: 01/20/18 17:10 Dose: 90 mg - Labs Labs: 01/21/18 08:02 01/21/18 08:02 PT 13.2 SECONDS (9.7-12.2) H 01/21/18 08:02 INR 1.2 01/21/18 08:02 APTT 46 SECONDS (21-34) H 01/19/18 06:17 - Constitutional Appears: Well - Head Exam Head Exam: ATRAUMATIC, NORMAL INSPECTION, NORMOCEPHALIC - Eye Exam Eye Exam: EOMI, Normal appearance, PERRL Pupil Exam: NORMAL ACCOMODATION, PERRL - ENT Exam ENT Exam: Mucous Membranes Moist, Normal Exam - Neck Exam Neck Exam: Full ROM, Normal Inspection. absent: Lymphadenopathy - Respiratory Exam Respiratory Exam: Clear to Ausculation Bilateral, NORMAL BREATHING PATTERN. absent: Rales, Rhonchi, Wheezes, Respiratory Distress - Cardiovascular Exam Cardiovascular Exam: REGULAR RHYTHM, +S1, +S2. absent: Murmur - GI/Abdominal Exam GI & Abdominal Exam: Soft, Normal Bowel Sounds. absent: Tenderness - Extremities Exam Extremities Exam: absent: Calf Tenderness, Full ROM (Limited ROM of the right lower extremity. ), Joint Swelling, Pedal Edema, Tenderness - Neurological Exam Neurological Exam: Alert, Awake, Oriented x3 Neuro motor strength exam: Left Upper Extremity: 5, Right Upper Extremity: 5, Left Lower Extremity: 4, Right Lower Extremity: 3 - Skin Skin Exam: Dry, Intact, Normal Color, Warm Assessment and Plan - Assessment and Plan (Free Text) Assessment: Patient is a 77 y/o female with PMHx of HTN, DM, HLD s/p peripheral angiogram (January 01 at [facility]) who presented to [facility] with complaints of worsening right lower extremity pain and discomfort. CTA of lower extremities showed 100% occlusion of right GARNETT MECHANIC. Upon evaluation in [facility] ED her right lower extremity was cold below the knee. Patient was transferred to [facility] for emergent limb salvage procedure for which she underwent atherectomy/PRODUCER ARBORIST MANAGER of the R-GARNETT MECHANIC. She was kept overnight in ICU for monitoring. Patient is currently out of ICU, and is being monitored on the floor. Plan: Limb Ischemia with History of PVD s/p atherectomy/PRODUCER ARBORIST MANAGER of R-GARNETT MECHANIC - c/w dual antiplatelet therapy (Xarelto + Brilinta) - no longer on Heparin gtt - Successful atherectomy angioplasty with right common femoral artery thrombotic occlusion (01/17/18) - Angiography (01/17/18): short segment occlusion of distal external iliac artery extending to the proximal common femoral artery. Multifocal areas of severe stenosis of superficial femoral and popliteral arterieis. Lower lower extremities: indwelling proximal/mid superficial femoral artery stent which is patent. Multifocal areas of moderate stenosis involving the superficial femorial artery with mild to moderate stenosis of the popliteal artery. posterior tibial artery. - monitor peripheral pulses - monitor for bleeding - patient is hemodynamically stable - c/w PT to improve functional status 2/2 mod-severe muscle atrophy due to right GARNETT MECHANIC occlusion - encourage ambulation - c/w morphine and percocet for pain control HTN - Currently normotensive; BP 127/57 - Norvasc 2.5 mg PO daily - Hydrocholorthiazide 12.5 mg PO daily - Maintain MAP > 65 Asthma - c/w duonebs - Montelukast 10 mg PO daily - Maintain SaO2 > 92% DM - ISS - Maintain euglycemia - c/w accuchecks DVT ppx: Xarelto 20 mg PO daily GI ppx: Protonix 40mg PO daily PT: Out of bed to chair. Dispo: continue to monitor patient on the floor. PT recommends placement for [facility]. Case was reviewed and discussed with Bleaching Machine Operator Dr. Darden.
[2018-01-21] MEDS: Oxycodone/Acetaminophen 5/325 mg Tab PO PRN ×2 (11:01→17:42)
--- NOTE | 2018-01-21 13:00 | VASCLAB ---
Date of service: 01/21/2018 PROCEDURE: HISTORY: Right lower extremity, PVD, Recent vascularization COMPARISON: None available. TECHNIQUE: Grayscale and duplex Doppler evaluation of the right common femoral, femoral, profunda femoral, popliteal, posterior tibial, anterior tibial and dorsalis pedis arteries was performed. Report prepared by BRIDGET Jay, RVT FINDINGS: RIGHT LOWER EXTREMITY: * Common Femoral Artery: Peak Systolic Velocity - 590: Doppler Waveform: Biphasic: Plaque description - Calcific * Profunda Femoral Artery: Peak Systolic Velocity - 156: Doppler Waveform: Biphasic.: Plaque description - Calcific * Femoral Artery o Proximal Segment: Peak Systolic Velocity - 225: Doppler Waveform: Biphasic: Plaque description - Calcific o Middle Segment: Peak Systolic Velocity - 240: Doppler Waveform: Biphasic: Plaque description - Calcific o Distal Segment: Peak Systolic Velocity - 98: Doppler Waveform: Biphasic: Plaque description - Calcific * Popliteal Artery o Proximal Segment: Peak Systolic Velocity - 117: Doppler Waveform: Biphasic: Plaque description - Calcific o Middle Segment: Peak Systolic Velocity - 106: Doppler Waveform: Biphasic: Plaque description - Calcific o Distal Segment: Peak Systolic Velocity - 67: Doppler Waveform: Biphasic: Plaque description - Calcific * Posterior Tibial Artery: Peak Systolic Velocity - 0: Doppler Waveform: Absent: Plaque description - Calcific * Anterior Tibial Artery: Peak Systolic Velocity - 61: Doppler Waveform: Biphasic: Plaque description - Calcific * Dorsalis Pedis Artery: Peak Systolic Velocity - 54: Doppler Waveform: Biphasic: Plaque description - Calcific OTHER FINDINGS: None. IMPRESSION: RIGHT: Possible occlusion of the right mid posterior tibial artery. Greater than 75% stenosis of the right common femoral artery. 30-49% stenosis of the right proximal and mid superficial femoral artery.
--- NOTE | 2018-01-21 13:00 | VASCLAB ---
Date of service: 01/21/2018 STUDY DESCRIPTION: HISTORY: PVD PRIORS: None. TECHNIQUE: Pulse volume recording waveforms and segmental pressures of bilateral lower extremities at multiple levels were obtained. Ankle Brachial Indices (ABIs) were calculated. Report prepared by BRIDGET Jay, RVT RIGHT LOWER EXTREMITY: * Brachial artery: Pressure - 157 mmHg. * High thigh: PVR waveform -Pulsatile * Low thigh: PVR waveform: Pulsatile * Calf: Pressure - 181 mmHg: Ratio - 1.15 PVR waveform: Pulsatile * Posterior tibial Artery: Pressure - 67 mmHg: Ratio - 0.43 PVR waveform: Reduced * Dorsalis pedis Artery: Pressure - >220 mmHg: Ratio - N/C PVR waveform: Reduced Ankle brachial index (TIANA): 0.43 LEFT LOWER EXTREMITY: * Brachial artery: Pressure - 156 mmHg. * High thigh: PVR waveform - Pulsatile * Low thigh: PVR waveform: Pulsatile * Calf: Pressure - >220 mmHg: Ratio - PVR waveform: Pulsatile * Posterior tibial Artery: Pressure - 102 mmHg: Ratio - 0.65 PVR waveform: Reduced * Dorsalis pedis Artery: Pressure - 136 mmHg: Ratio - 0.87 PVR waveform: Reduced Ankle brachial index (TIANA): 0.87 OTHER FINDINGS: IMPRESSION: Right: This exam reveals severely decreased perfusion of the right lower extremity, noted from the iliac to tibial artery levels. Left: This exam reveals mildly decreased perfusion of the left lower extremity, noted from the iliac to tibial artery levels.
[2018-01-21] MEDS: (Lantus) Insulin Glargine, Recombinant SC SCH (22:00)
[2018-01-22] MEDS: Albuterol-Ipratrop 3 mg / 0.5 (3 ml) UD INH SCH ×5 (01:42→23:38)
[2018-01-22] MEDS ORDERED: guaiFENesin 100 mg/5 ml Syrup UD PO STA (02:42)
[2018-01-22] MEDS: Sodium Chloride 0.9% 1,000 ML IV SCH (05:40)
[2018-01-22] MEDS: Oxycodone/Acetaminophen 5/325 mg Tab PO PRN ×3 (07:00→22:10)
[2018-01-22 07:30] LABS: BASO # 0.1 K/uL (0.0-0.2); BASO % 0.7 % (0.0-2.0); EOS # 0.7 K/uL (0.0-0.7); EOS % 7.9 % (0.0-4.0); HEMOGLOBIN 8.8 g/dL (11.0-16.0); LYMPH # 1.8 K/uL (1.0-4.3); LYMPH % 20.9 % (20.0-40.0); MEAN CELL VOLUME 88.7 fL (81.0-99.0); MEAN CORPUSCULAR HEMOGLOBIN 29.4 pg (27.0-31.0); MEAN CORPUSCULAR HGB CONC 33.2 g/dL (33.0-37.0); MEAN PLATELET VOLUME 8.6 fL (7.2-11.7); MONO # 1.1 K/uL (0.0-0.8); MONO % 12.3 % (0.0-10.0); NEUT # 5.1 K/uL (1.8-7.0); NEUT % 58.2 % (50.0-75.0); RED CELL DISTRIBUTION WIDTH 14.2 % (11.5-14.5); WHITE BLOOD COUNT 8.8 K/uL (4.8-10.8)
[2018-01-22 07:41] LABS: ALB/GLOB RATIO 1.2 (1.0-2.1); ALBUMIN 3.8 g/dL (3.5-5.0); CALCIUM 9.7 mg/dl (8.6-10.4)
[2018-01-22] MEDS: (Novolog) Insulin Aspart, Recombinant 100 u/ml 10 ml vial SC SCH ×7 (08:05→22:00)
--- NOTE | 2018-01-22 09:47 | CP.PCM.PN ---
Subjective - Date & Time of Evaluation Date of Evaluation: 01/22/18 Time of Evaluation: 09:00 - Subjective Subjective: Ramy Martinez, PGY1 Cardiology Progress Note for Dr. Darden Patient was seen and examined at bedside this morning. Language interpretation was done by off-on site manager. No changes overnight. Patient seen by Physical Therapy yesterday. Patient denied lightheadedness, dizziness, chest pain, palpitations, shortness of breath, nausea, vomiting and diarrhea. Patient is still complaining of right lower extremity pain, unchanged from yesterday. Today, patient was complaining of worsening cough and she said she "feels like she has the flu." A full 12 point ROS was conducted and unremarkable except as stated above. Objective - Vital Signs/Intake and Output Vital Signs (last 24 hours): Temp Pulse Resp BP Pulse Ox 97.5 F L 92 H 20 141/64 100 01/22/18 07:10 01/22/18 07:10 01/22/18 07:10 01/22/18 07:10 01/22/18 07:10 Intake and Output: 01/22/18 01/22/18 06:59 18:59 Intake Total 1800 Output Total 1400 Balance 400 - Medications Medications: Current Medications Albuterol/Ipratropium (Duoneb 3 Mg/0.5 Mg (3 Ml) Ud) 3 ml INH RQ6 [facility] Last Admin: 01/22/18 07:25 Dose: 3 ml Amlodipine Besylate (Norvasc) 2.5 mg PO DAILY [facility] Last Admin: 01/21/18 09:08 Dose: 2.5 mg Dextrose (Dextrose 50% Inj) 0 ml IV STAT PRN; Protocol PRN Reason: Hypoglycemia Protocol Dextrose (Glutose 15) 0 gm PO ONCE PRN; Protocol PRN Reason: Hypoglycemia Protocol Docusate Sodium (Colace) 100 mg PO TID [facility] Last Admin: 01/21/18 17:32 Dose: 100 mg Glucagon (Glucagen Diagnostic Kit) 0 mg IM STAT PRN; Protocol PRN Reason: Hypoglycemia Protocol Guaifenesin (Robitussin) 100 mg PO Q4H PRN PRN Reason: Cough Hydrochlorothiazide (Microzide) 12.5 mg PO DAILY [facility] Last Admin: 01/21/18 09:08 Dose: 12.5 mg Dextrose (Dextrose 5% In Water 1000 Ml) 1,000 mls @ 0 mls/hr IV .Q0M PRN; Protocol; Per Protocol PRN Reason: Hypoglycemia Protocol Sodium Chloride (Sodium Chloride 0.9%) 1,000 mls @ 75 mls/hr IV .[id number] [facility] Last Admin: 01/22/18 05:40 Dose: Not Given Insulin Aspart (Novolog) 0 unit SC ACHS [facility] PRN Reason: Protocol Last Admin: 01/21/18 21:33 Dose: Not Given Insulin Aspart (Novolog) 12 unit SC TIDAC [facility] Last Admin: 01/21/18 17:00 Dose: Not Given Insulin Glargine (Lantus) 30 unit SC HS [facility] Last Admin: 01/21/18 22:00 Dose: 30 u Mirtazapine (Remeron) 15 mg PO DAILY [facility] Last Admin: 01/21/18 09:08 Dose: 15 mg Montelukast Sodium (Singulair) 10 mg PO DAILY [facility] Last Admin: 01/21/18 09:07 Dose: 10 mg Morphine Sulfate (Morphine) 2 mg IVP Q4 PRN PRN Reason: Pain, severe (8-10) Last Admin: 01/21/18 02:43 Dose: 2 mg Oxycodone/Acetaminophen (Percocet 5/325 Mg Tab) 1 tab PO Q6H PRN PRN Reason: Pain, severe (8-10) Stop: 01/23/18 11:09 Last Admin: 01/22/18 07:00 Dose: 1 tab Pantoprazole Sodium (Protonix Ec Tab) 40 mg PO DAILY [facility] Last Admin: 01/21/18 09:08 Dose: 40 mg Polyethylene Glycol (Miralax) 17 gm PO DAILY [facility] Last Admin: 01/21/18 09:08 Dose: 17 gm Rivaroxaban (Xarelto) 20 mg PO DAILY [facility] Last Admin: 01/21/18 09:08 Dose: 20 mg Rosuvastatin Calcium (Crestor) 10 mg PO HS [facility] Last Admin: 01/21/18 21:59 Dose: 10 mg Ticagrelor (Brilinta) 90 mg PO BID [facility] Last Admin: 01/21/18 17:32 Dose: 90 mg - Labs Labs: 01/22/18 07:09 01/22/18 07:09 PT 13.2 SECONDS (9.7-12.2) H 01/21/18 08:02 INR 1.2 01/21/18 08:02 APTT 46 SECONDS (21-34) H 01/19/18 06:17 - Constitutional Appears: Well, No Acute Distress - Head Exam Head Exam: ATRAUMATIC, NORMAL INSPECTION, NORMOCEPHALIC - Eye Exam Eye Exam: EOMI, Normal appearance, PERRL Pupil Exam: NORMAL ACCOMODATION, PERRL - ENT Exam ENT Exam: Mucous Membranes Moist, Normal Exam - Neck Exam Neck Exam: Full ROM, Normal Inspection. absent: Lymphadenopathy - Respiratory Exam Respiratory Exam: Wheezes (Diffuse wheezing bilaterally ). absent: Accessory Muscle Use, Chest Wall Tenderness, Clear to Ausculation Bilateral, Rales, Rhonchi, Respiratory Distress - Cardiovascular Exam Cardiovascular Exam: RRR, +S1, +S2. absent: Murmur - GI/Abdominal Exam GI & Abdominal Exam: Soft, Normal Bowel Sounds. absent: Tenderness - Extremities Exam Extremities Exam: Tenderness (Mild tenderness to palpation of R Lower Extremity ). absent: Calf Tenderness, Full ROM (Limited ROM of bilateral lower extremity) , Joint Swelling, Pedal Edema - Neurological Exam Neurological Exam: Alert, Awake, Oriented x3 Neuro motor strength exam: Left Upper Extremity: 5, Right Upper Extremity: 5, Left Lower Extremity: 4, Right Lower Extremity: 3 - Skin Skin Exam: Dry, Intact, Normal Color, Warm. absent: Pallor Assessment and Plan - Assessment and Plan (Free Text) Assessment: Patient is a 77 y/o female with PMHx of HTN, DM, HLD s/p peripheral angiogram (January 01 at [facility] [place]) who presented to [facility] with complaints of worsening right lower extremity pain and discomfort. CTA of lower extremities showed 100% occlusion of right SOAP GRINDER. Upon evaluation in [facility] ED her right lower extremity was cold below the knee. Patient was transferred to [facility] for emergent limb salvage procedure for which she underwent atherectomy/COPIER REPAIR TECHNICIAN of the R-SOAP GRINDER. She was kept overnight in ICU for monitoring. Patient is currently out of ICU, and is being monitored on the floor. Plan: Limb Ischemia with History of PVD s/p atherectomy/COPIER REPAIR TECHNICIAN of R-SOAP GRINDER - ordered CXR for worsening cough with previously mildly elevated leukocytosis; r/o HCAP - c/w dual antiplatelet therapy (Xarelto + Brilinta) - Successful atherectomy angioplasty with right common femoral artery thrombotic occlusion (01/17/18) - Angiography (01/17/18): short segment occlusion of distal external iliac artery extending to the proximal common femoral artery. Multifocal areas of severe stenosis of superficial femoral and popliteral arterieis. Lower lower extremities: indwelling proximal/mid superficial femoral artery stent which is patent. Multifocal areas of moderate stenosis involving the superficial femorial artery with mild to moderate stenosis of the popliteal artery. posterior tibial artery. - monitor peripheral pulses and bleeding - patient is hemodynamically stable - c/w PT to improve functional status 2/2 mod-severe muscle atrophy due to right SOAP GRINDER occlusion - encourage ambulation - c/w pain control HTN - Currently normotensive - c/w Norvasc 2.5 mg PO daily and Hydrocholorthiazide 12.5 mg PO daily - Maintain MAP > 65 Asthma - increased wheezing bilaterally on pulmonary exam - c/w duonebs - c/w Montelukast 10 mg PO daily - Maintain SaO2 > 92% DM - ISS - Maintain euglycemia - c/w accuchecks DVT ppx: Xarelto 20 mg PO daily GI ppx: Protonix 40mg PO daily PT: Out of bed to chair. Dispo: PT recommends placement for [facility]. Case was reviewed and discussed with Gas Line Installer Dr. Darden.
[2018-01-22] MEDS: Pantoprazole 40 mg EC Tab PO SCH (10:23)
[2018-01-22] MEDS: POLYETHYLENE GLYCOL 3350 17 GM/Dose PACKET PO SCH (10:24)
[2018-01-22] MEDS: guaiFENesin 100 mg/5 ml Syrup UD PO PRN ×2 (10:26→18:30)
--- NOTE | 2018-01-22 10:32 | RAD ---
Date of service: 01/22/2018 HISTORY: cough, increased wheezing on exam, r/o PNA COMPARISON: 01/18/2018 FINDINGS: LUNGS: No consolidation. PLEURA: No significant pleural effusion identified, no pneumothorax apparent. CARDIOVASCULAR: Mild cardiomegaly. Pulmonary venous congestion slightly increased since prior exam. . Concomitant granulomatous disease versus a prominent vessels on end - perihilar locations- possible. No significant change in this regard. OSSEOUS STRUCTURES: Bilateral shoulder arthrosis. Possible right calcific bursitis center calcific rotator cuff tendinopathy VISUALIZED UPPER ABDOMEN: Normal. OTHER FINDINGS: None. IMPRESSION: Cardiomegaly and similar. Pulmonary venous congestion for the slightly increased since prior exam.
--- NOTE | 2018-01-22 13:23 | CP.PCM.PN ---
<BreemagyVinicius - Last Filed: 01/22/18 13:58> Subjective - Date & Time of Evaluation Date of Evaluation: 01/22/18 Time of Evaluation: 10:00 - Subjective Subjective: 77 y/o F was assessed at bedside. Pt appears well and reports no new symptoms or acute events overnight. Pt is still experiencing some pain in her right lower extremity, as well as several bouts of coughing with mild chest pain. Pt denied any tachycardia, nausea, vomiting, diarrhea, or dysuria. Pt reports some mild wheezing and sputum production. Objective - Vital Signs/Intake and Output Vital Signs (last 24 hours): Temp Pulse Resp BP Pulse Ox 97.5 F L 88 20 141/64 100 01/22/18 07:10 01/22/18 09:00 01/22/18 07:10 01/22/18 07:10 01/22/18 07:10 Intake and Output: 01/22/18 01/22/18 06:59 18:59 Intake Total 1800 Output Total 1400 Balance 400 - Medications Medications: Current Medications Albuterol/Ipratropium (Duoneb 3 Mg/0.5 Mg (3 Ml) Ud) 3 ml INH RQ6 [facility] Last Admin: 01/22/18 07:25 Dose: 3 ml Amlodipine Besylate (Norvasc) 2.5 mg PO DAILY [facility] Last Admin: 01/22/18 10:23 Dose: 2.5 mg Dextrose (Dextrose 50% Inj) 0 ml IV STAT PRN; Protocol PRN Reason: Hypoglycemia Protocol Dextrose (Glutose 15) 0 gm PO ONCE PRN; Protocol PRN Reason: Hypoglycemia Protocol Docusate Sodium (Colace) 100 mg PO TID [facility] Last Admin: 01/22/18 10:23 Dose: 100 mg Glucagon (Glucagen Diagnostic Kit) 0 mg IM STAT PRN; Protocol PRN Reason: Hypoglycemia Protocol Guaifenesin (Robitussin) 100 mg PO Q4H PRN PRN Reason: Cough Last Admin: 01/22/18 10:26 Dose: 100 mg Hydrochlorothiazide (Microzide) 12.5 mg PO DAILY [facility] Last Admin: 01/22/18 10:23 Dose: 12.5 mg Dextrose (Dextrose 5% In Water 1000 Ml) 1,000 mls @ 0 mls/hr IV .Q0M PRN; Protocol; Per Protocol PRN Reason: Hypoglycemia Protocol Sodium Chloride (Sodium Chloride 0.9%) 1,000 mls @ 75 mls/hr IV .[id number] [facility] Last Admin: 01/22/18 05:40 Dose: Not Given Insulin Aspart (Novolog) 0 unit SC ACHS [facility] PRN Reason: Protocol Last Admin: 01/22/18 08:05 Dose: 3 units Insulin Aspart (Novolog) 12 unit SC TIDAC [facility] Last Admin: 01/22/18 08:05 Dose: 12 units Insulin Glargine (Lantus) 30 unit SC HS [facility] Last Admin: 01/21/18 22:00 Dose: 30 u Mirtazapine (Remeron) 15 mg PO DAILY [facility] Last Admin: 01/22/18 10:27 Dose: 15 mg Montelukast Sodium (Singulair) 10 mg PO DAILY [facility] Last Admin: 01/22/18 10:24 Dose: 10 mg Morphine Sulfate (Morphine) 2 mg IVP Q4 PRN PRN Reason: Pain, severe (8-10) Last Admin: 01/21/18 02:43 Dose: 2 mg Oxycodone/Acetaminophen (Percocet 5/325 Mg Tab) 1 tab PO Q6H PRN PRN Reason: Pain, severe (8-10) Stop: 01/23/18 11:09 Last Admin: 01/22/18 07:00 Dose: 1 tab Pantoprazole Sodium (Protonix Ec Tab) 40 mg PO DAILY [facility] Last Admin: 01/22/18 10:23 Dose: 40 mg Polyethylene Glycol (Miralax) 17 gm PO DAILY [facility] Last Admin: 01/22/18 10:24 Dose: 17 gm Rivaroxaban (Xarelto) 20 mg PO DAILY [facility] Last Admin: 01/22/18 10:22 Dose: 20 mg Rosuvastatin Calcium (Crestor) 10 mg PO HS [facility] Last Admin: 01/21/18 21:59 Dose: 10 mg Ticagrelor (Brilinta) 90 mg PO BID [facility] Last Admin: 01/22/18 10:22 Dose: 90 mg - Labs Labs: 01/22/18 07:09 01/22/18 07:09 PT 13.2 SECONDS (9.7-12.2) H 01/21/18 08:02 INR 1.2 01/21/18 08:02 APTT 46 SECONDS (21-34) H 01/19/18 06:17 - Constitutional Appears: Well, No Acute Distress - Head Exam Head Exam: ATRAUMATIC, NORMAL INSPECTION, NORMOCEPHALIC - Eye Exam Eye Exam: Normal appearance - ENT Exam ENT Exam: Mucous Membranes Moist - Respiratory Exam Respiratory Exam: Wheezes, NORMAL BREATHING PATTERN - Cardiovascular Exam Cardiovascular Exam: REGULAR RHYTHM, +S1, +S2 - Extremities Exam Extremities Exam: Tenderness Additional comments: Pt had slight tenderness to palpation in the RLE. Sensation was intact bl in lower extremities. - Neurological Exam Neurological Exam: Alert, Awake, Oriented x3 Neuro motor strength exam: Right Lower Extremity: 4 (Pt has diminished plantarflexion and dorsiflexion in the right foot) - Psychiatric Exam Psychiatric exam: Normal Affect, Normal Mood - Skin Skin Exam: Dry, Intact, Normal Color Assessment and Plan - Assessment and Plan (Free Text) Assessment: 77F s/p day 5 of revascularization of COVERSTITCH BINDER Plan: Common Femoral Artery Occlusion -continue dual antiplatelet therapy (brillinta + IV heparin) and po statin -continue IVF -monitor peripheral pulses if any abnormality call vascular/cardiology -monitor for any bleeding -Patient remains hemodynamically stable. -PT/OT consultation to improve neovascularization pains -encourage ambulation Constipation: -Miralax, 17gm PO Daily -IVF NS 75ml/hr DM: -glucose 212 -Last A1C 7.5 (06/28/17) -Aspart 12 unit subq TIDAC -Lantus 33 units subqHS -Accuchecks QAC and HS -Hypoglycemic protocol HTN: -Norvasc 2.5mg PO daily Asthma: -duonebs Rq4 PPX: -Xarelto 20mg PO daily -Protonix 40mg PO daily Dispo: Pending [facility] placement <Tanvi Zavala V - Last Filed: 01/22/18 17:10> Objective - Vital Signs/Intake and Output Vital Signs (last 24 hours): Temp Pulse Resp BP Pulse Ox 97.9 F 105 H 20 147/70 100 01/22/18 15:00 01/22/18 15:00 01/22/18 15:00 01/22/18 15:00 01/22/18 15:00 Intake and Output: 01/22/18 01/22/18 06:59 18:59 Intake Total 1800 Output Total 1400 Balance 400 - Medications Medications: Current Medications Albuterol/Ipratropium (Duoneb 3 Mg/0.5 Mg (3 Ml) Ud) 3 ml INH RQ4 [facility] Amlodipine Besylate (Norvasc) 2.5 mg PO DAILY [facility] Last Admin: 01/22/18 10:23 Dose: 2.5 mg Dextrose (Dextrose 50% Inj) 0 ml IV STAT PRN; Protocol PRN Reason: Hypoglycemia Protocol Dextrose (Glutose 15) 0 gm PO ONCE PRN; Protocol PRN Reason: Hypoglycemia Protocol Docusate Sodium (Colace) 100 mg PO TID [facility] Last Admin: 01/22/18 14:15 Dose: 100 mg Glucagon (Glucagen Diagnostic Kit) 0 mg IM STAT PRN; Protocol PRN Reason: Hypoglycemia Protocol Guaifenesin (Robitussin) 100 mg PO Q4H PRN PRN Reason: Cough Last Admin: 01/22/18 10:26 Dose: 100 mg Hydrochlorothiazide (Microzide) 12.5 mg PO DAILY [facility] Last Admin: 01/22/18 10:23 Dose: 12.5 mg Dextrose (Dextrose 5% In Water 1000 Ml) 1,000 mls @ 0 mls/hr IV .Q0M PRN; Protocol; Per Protocol PRN Reason: Hypoglycemia Protocol Insulin Aspart (Novolog) 0 unit SC ACHS [facility] PRN Reason: Protocol Last Admin: 01/22/18 12:10 Dose: 3 units Insulin Aspart (Novolog) 12 unit SC TIDAC [facility] Last Admin: 01/22/18 12:10 Dose: 12 units Insulin Glargine (Lantus) 30 unit SC HS [facility] Last Admin: 01/21/18 22:00 Dose: 30 u Mirtazapine (Remeron) 15 mg PO DAILY [facility] Last Admin: 01/22/18 10:27 Dose: 15 mg Montelukast Sodium (Singulair) 10 mg PO DAILY [facility] Last Admin: 01/22/18 10:24 Dose: 10 mg Morphine Sulfate (Morphine) 2 mg IVP Q4 PRN PRN Reason: Pain, severe (8-10) Last Admin: 01/21/18 02:43 Dose: 2 mg Oxycodone/Acetaminophen (Percocet 5/325 Mg Tab) 1 tab PO Q6H PRN PRN Reason: Pain, severe (8-10) Stop: 01/23/18 11:09 Last Admin: 01/22/18 14:15 Dose: 1 tab Pantoprazole Sodium (Protonix Ec Tab) 40 mg PO DAILY [facility] Last Admin: 01/22/18 10:23 Dose: 40 mg Polyethylene Glycol (Miralax) 17 gm PO DAILY [facility] Last Admin: 01/22/18 10:24 Dose: 17 gm Rivaroxaban (Xarelto) 20 mg PO DAILY [facility] Last Admin: 01/22/18 10:22 Dose: 20 mg Rosuvastatin Calcium (Crestor) 10 mg PO HS [facility] Last Admin: 01/21/18 21:59 Dose: 10 mg Ticagrelor (Brilinta) 90 mg PO BID [facility] Last Admin: 01/22/18 10:22 Dose: 90 mg - Labs Labs: 01/22/18 07:09 01/22/18 07:09 PT 13.2 SECONDS (9.7-12.2) H 01/21/18 08:02 INR 1.2 01/21/18 08:02 APTT 46 SECONDS (21-34) H 01/19/18 06:17 Assessment and Plan (1) Limb ischemia Status: Acute (2) PVD (peripheral vascular disease) Status: Chronic (3) IDDM (insulin dependent diabetes mellitus) Status: Chronic (4) Hypertension Status: Chronic (5) Asthma Status: Chronic (6) Constipation Status: Acute (7) Prophylactic measure Status: Acute Attending/Attestation - Attestation I have personally seen and examined this patient.: Yes I have fully participated in the care of the patient.: Yes I have reviewed all pertinent clinical information, including history, physical exam and plan: Yes Notes (Text): Patient seen, examined and case discussed with day-time resident. Patient seen this morning. Patient reports pain was improved. She is participating with physical therapy noting she has some muscle pains but not as bad as previously. Patient reports more that her asthma is acting up. I have discontinued her IV fluids and reviewed chest xray noting for increased pulmonary venous congestion. I have d/c gentle iv hydration. Given additional Lasix 40mg IVX1 and schedule duonebsQ4. Patient's insurance does not approve for [facility]. Case management is going to follow-up with Jacquelyn AYALA for discharge planning purposes. I have updated Dr. Darden, who will touch base with Dr. Guzman, in regards to follow-up intervention for the right lower extremtiy, Assessment and Plan (1) Limb ischemia Assessment & Plan: * Dr. Darden (fuel conversion technician) on case-->help appreciated * Angiography (01/17/18): short segment occlusion of distal external iliac artery extending to the proximal common femoral artery. Multifocal areas of severe stenosis of superficial femoral and popliteral arterieis. Lower lower extremities: indwelling proximal/mid superficial femoral artery stent which is patent. Multifocal areas of moderate stenosis involving the superficial femorial artery with mild to moderate stenosis of the popliteal artery. posterior tibial artery. * Successful atherectomy angioplasty with right common femoral artery thrombotic occlusion (01/17/18): * Patient switched from Heparin drip to Xarelto on 01/19/18 * Arterial duplex (01/21/18): Right: severely decreased perfusion of the right lower extremity, noted from the iliac to tibial artery levels. Left: reveals mildly decreased perfusion of the left lower extremity, noted from the iliac to tibial artery levels Medication: * Xarelto 20mg PO Daily * Brilinta 90mg PO BID * pain prn: percocet 1 tab PO q6h PRN severe pain. Status: Acute (2) PVD (peripheral vascular disease) Assessment & Plan: * Known to both Dr. Guzman and Dr. Darden * Cardiology to determine next step for future intervention in regards to right lower extremity Status: Chronic (3) IDDM (insulin dependent diabetes mellitus) Assessment & Plan: * Aspart 12 unit subq TIDAC * Lantus 33 units subqHS * Accuchecks QAC and HS * Hypoglycemic protocol * Hgba1c: 7.7 (06/28/17) Status: Chronic (4) Hypertension Assessment & Plan: * Patient takes Norvasc 2.5mg PO daily and HCTZ 12.5mg PO daily as outpatient. * We have resumed during hospitalization Status: Chronic (5) Asthma Assessment & Plan: * Duonebs PQ4H * Singulair 10mg PO daily * Chest xray: mild cardiomegaly; increased pulmonary venous congestion Status: Chronic (6) Constipation Assessment & Plan: * start colace 100mg PO TID * Miralax daily * monitor for bowel movement Status: Acute (7) Chronic Renal insufficiency Assessment & Plan: * Monitor Cr. * d/c iv fluids * GFR: 40s range (8) Prophylactic measure Assessment & Plan: * Xarelto 20mg PO daily * Protonix 40mg PO daily * PT/OT eval * out of bed to chair * PT is recommending for [facility]. Status: Acute Disposition: patient is medically stable for [facility] bed when available. Cardiology to follow to coordinate for future intervention.
[2018-01-22] MEDS: (Lantus) Insulin Glargine, Recombinant SC SCH (22:08)
[2018-01-23] MEDS: Albuterol-Ipratrop 3 mg / 0.5 (3 ml) UD INH SCH ×4 (03:15→16:37)
[2018-01-23 04:43] VITALS: RESP 20
[2018-01-23] MEDS: (Novolog) Insulin Aspart, Recombinant 100 u/ml 10 ml vial SC SCH ×6 (08:01→17:06)
[2018-01-23 08:44] VITALS: BP 137/67; TEMP 98.4; O2SAT 100
--- NOTE | 2018-01-23 08:57 | CP.PCM.PN ---
Subjective - Date & Time of Evaluation Date of Evaluation: 01/23/18 Time of Evaluation: 08:00 - Subjective Subjective: Ramy Martinez, PGY1 Cardiology Progress Note for Dr. Darden Patient was seen and examined at bedside this morning. Language interpretation was done by off-site monitor. She denied chest pain, shortness of breath, abdominal pain, lightheadedness, headache, dizziness, nausea, vomiting, diarrhea. Patient still endorses right lower extremity pain (unchanged from yesterday), however, she has better ROM of the extremity. Patient still has a mild cough and congestion. She was explained that her CXR did not indicate PNA, however, she was given an additional Lasix 40 mg IVPx1 with duonebs q4 for increased pulmonary venous congestion. Otherwise, no overnight changes. Patient has been participating with physical therapy. A full 12 point ROS was conducted and unremarkable except as stated above. Objective - Vital Signs/Intake and Output Vital Signs (last 24 hours): Temp Pulse Resp BP Pulse Ox 98.4 F 94 H 20 137/67 100 01/23/18 07:45 01/23/18 07:45 01/23/18 07:45 01/23/18 07:45 01/23/18 07:45 Intake and Output: 01/23/18 01/23/18 06:59 18:59 Intake Total 120 Balance 120 - Medications Medications: Current Medications Albuterol/Ipratropium (Duoneb 3 Mg/0.5 Mg (3 Ml) Ud) 3 ml INH RQ4 [facility] Last Admin: 01/23/18 07:48 Dose: 3 ml Amlodipine Besylate (Norvasc) 2.5 mg PO DAILY [facility] Last Admin: 01/22/18 10:23 Dose: 2.5 mg Dextrose (Dextrose 50% Inj) 0 ml IV STAT PRN; Protocol PRN Reason: Hypoglycemia Protocol Dextrose (Glutose 15) 0 gm PO ONCE PRN; Protocol PRN Reason: Hypoglycemia Protocol Docusate Sodium (Colace) 100 mg PO TID [facility] Last Admin: 01/22/18 18:19 Dose: 100 mg Glucagon (Glucagen Diagnostic Kit) 0 mg IM STAT PRN; Protocol PRN Reason: Hypoglycemia Protocol Guaifenesin (Robitussin) 100 mg PO Q4H PRN PRN Reason: Cough Last Admin: 01/22/18 18:30 Dose: 100 mg Hydrochlorothiazide (Microzide) 12.5 mg PO DAILY [facility] Last Admin: 01/22/18 10:23 Dose: 12.5 mg Dextrose (Dextrose 5% In Water 1000 Ml) 1,000 mls @ 0 mls/hr IV .Q0M PRN; Protocol; Per Protocol PRN Reason: Hypoglycemia Protocol Insulin Aspart (Novolog) 0 unit SC ACHS [facility] PRN Reason: Protocol Last Admin: 01/23/18 08:01 Dose: 3 units Insulin Aspart (Novolog) 12 unit SC TIDAC [facility] Last Admin: 01/23/18 08:02 Dose: 12 units Insulin Glargine (Lantus) 30 unit SC HS [facility] Last Admin: 01/22/18 22:08 Dose: 30 u Mirtazapine (Remeron) 15 mg PO DAILY [facility] Last Admin: 01/22/18 10:27 Dose: 15 mg Montelukast Sodium (Singulair) 10 mg PO DAILY [facility] Last Admin: 01/22/18 10:24 Dose: 10 mg Morphine Sulfate (Morphine) 2 mg IVP Q4 PRN PRN Reason: Pain, severe (8-10) Last Admin: 01/21/18 02:43 Dose: 2 mg Oxycodone/Acetaminophen (Percocet 5/325 Mg Tab) 1 tab PO Q6H PRN PRN Reason: Pain, severe (8-10) Stop: 01/23/18 11:09 Last Admin: 01/22/18 22:10 Dose: 1 tab Pantoprazole Sodium (Protonix Ec Tab) 40 mg PO DAILY [facility] Last Admin: 01/22/18 10:23 Dose: 40 mg Polyethylene Glycol (Miralax) 17 gm PO DAILY [facility] Last Admin: 01/22/18 10:24 Dose: 17 gm Rivaroxaban (Xarelto) 20 mg PO DAILY [facility] Last Admin: 01/22/18 10:22 Dose: 20 mg Rosuvastatin Calcium (Crestor) 10 mg PO HS [facility] Last Admin: 01/22/18 22:08 Dose: 10 mg Ticagrelor (Brilinta) 90 mg PO BID [facility] Last Admin: 01/22/18 18:19 Dose: 90 mg - Labs Labs: 01/22/18 07:09 01/22/18 07:09 PT 13.2 SECONDS (9.7-12.2) H 01/21/18 08:02 INR 1.2 01/21/18 08:02 APTT 46 SECONDS (21-34) H 01/19/18 06:17 - Constitutional Appears: Well - Head Exam Head Exam: ATRAUMATIC, NORMAL INSPECTION, NORMOCEPHALIC - Eye Exam Eye Exam: EOMI, Normal appearance, PERRL - ENT Exam ENT Exam: Mucous Membranes Moist, Normal Exam - Neck Exam Neck Exam: Full ROM, Normal Inspection. absent: Lymphadenopathy - Respiratory Exam Respiratory Exam: Chest Wall Tenderness (Mild tenderness 2/2 cough ), Wheezes, NORMAL BREATHING PATTERN. absent: Rhonchi, Stridor - Cardiovascular Exam Cardiovascular Exam: RRR, +S1, +S2. absent: Murmur - GI/Abdominal Exam GI & Abdominal Exam: Soft, Normal Bowel Sounds. absent: Tenderness - Extremities Exam Extremities Exam: Normal Capillary Refill, Tenderness (Mild tenderness to palpation of right lower extremity ). absent: Full ROM (Limited ROM of right lower extremity ), Joint Swelling, Pedal Edema - Back Exam Back Exam: NORMAL INSPECTION - Neurological Exam Neurological Exam: Alert, Awake, Oriented x3 Neuro motor strength exam: Left Upper Extremity: 5, Right Upper Extremity: 5, Left Lower Extremity: 5, Right Lower Extremity: 4 (Motor strength testing improved from prior interview ) - Skin Skin Exam: Dry, Intact, Normal Color, Warm Assessment and Plan - Assessment and Plan (Free Text) Assessment: Patient is a 77 y/o female with PMHx of HTN, DM, HLD s/p peripheral angiogram (January 01 at [facility]) who presented [facility] with complaints of worsening right lower extremity pain and discomfort. CTA of lower extremities showed 100% occlusion of right POTTERY KILN BUILDER. Upon evaluation in [facility] ED her right lower extremity was cold below the knee. Patient was transferred to [facility] for emergent limb salvage procedure for which she underwent atherectomy/TRAP SETTER of the R-POTTERY KILN BUILDER. She was kept overnight in ICU for monitoring. Patient is currently out of ICU, and is being monitored on the floor. Patient has been doing well on the floor and receiving physical therapy. She is pending placement for [facility]. Plan: Limb Ischemia with History of PVD s/p atherectomy/TRAP SETTER of R-POTTERY KILN BUILDER - c/w dual antiplatelet therapy (Xarelto + Brilinta) - Successful atherectomy angioplasty with right common femoral artery thrombotic occlusion (01/17/18) - Angiography (01/17/18): short segment occlusion of distal external iliac artery extending to the proximal common femoral artery. Multifocal areas of severe stenosis of superficial femoral and popliteral arterieis. Lower lower extremities: indwelling proximal/mid superficial femoral artery stent which is patent. Multifocal areas of moderate stenosis involving the superficial femorial artery with mild to moderate stenosis of the popliteal artery. posterior tibial artery. - monitor peripheral pulses and bleeding - patient is hemodynamically stable - c/w PT to improve functional status 2/2 mod-severe muscle atrophy due to right POTTERY KILN BUILDER occlusion - Improved motor strength of the right lower extremity - encourage ambulation - c/w pain control Cough 2/2 Asthma - CXR negative for PNA, showed increased vascular pulmonary congestion. Given Lasix x1 and c/w duonebs q4; supportive treatment - Afebrile, no leukocytosis - c/w Montelukast 10 mg PO daily - Maintain SaO2 > 92% HTN - Currently normotensive - c/w Norvasc 2.5 mg PO daily and Hydrocholorthiazide 12.5 mg PO daily - Maintain MAP > 65 DM - ISS - Maintain euglycemia - c/w accuchecks DVT ppx: Xarelto 20 mg PO daily GI ppx: Protonix 40mg PO daily PT: Out of bed to chair. Dispo: Case management will follow up with Jacquelyn AYALA for discharge planning. Case was reviewed and discussed with V[employer]er Gl[employer] Dr. Darden.
[2018-01-23] MEDS: POLYETHYLENE GLYCOL 3350 17 GM/Dose PACKET PO SCH (09:48)
[2018-01-23] MEDS: Pantoprazole 40 mg EC Tab PO SCH (09:48)
[2018-01-23] MEDS: guaiFENesin 100 mg/5 ml Syrup UD PO PRN (10:41)
[2018-01-23 12:32] VITALS: PULSE 112
[2018-01-23] MEDS ORDERED: Oxycodone/Acetaminophen 5/325 mg Tab PO ONE (13:00)
--- NOTE | 2018-01-23 16:31 | CP.PCM.DIS ---
<Vinicius Aquino - Last Filed: 01/23/18 16:24> Provider - Provider Date of Admission: 01/17/18 23:30 Attending physician: Tanvi Zavala DO Time Spent in preparation of Discharge (in minutes): 45 Diagnosis - Discharge Diagnosis (1) Constipation Status: Resolved (2) Limb ischemia Status: Resolved (3) S/P angioplasty Status: Chronic (4) Hypertension Status: Chronic (5) IDDM (insulin dependent diabetes mellitus) Status: Chronic (6) Asthma exacerbation Status: Resolved Hospital Course - Lab Results Lab Results: Micro Results 01/20/18 Unknown Naris MRSA Culture - Final MRSA NOT DETECTED Most Recent Lab Values WBC 8.8 K/uL (4.8-10.8) 01/22/18 07:09 RBC 3.00 Mil/uL (3.80-5.20) L 01/22/18 07:09 Hgb 8.8 g/dL (11.0-16.0) L 01/22/18 07:09 Hct 26.6 % (34.0-47.0) L 01/22/18 07:09 MCV 88.7 fL (81.0-99.0) 01/22/18 07:09 MCH 29.4 pg (27.0-31.0) 01/22/18 07:09 MCHC 33.2 g/dL (33.0-37.0) 01/22/18 07:09 RDW 14.2 % (11.5-14.5) 01/22/18 07:09 Plt Count 251 K/uL (130-400) 01/22/18 07:09 MPV 8.6 fL (7.2-11.7) 01/22/18 07:09 Neut % (Auto) 58.2 % (50.0-75.0) 01/22/18 07:09 Lymph % (Auto) 20.9 % (20.0-40.0) 01/22/18 07:09 [place] % (Auto) 12.3 % (0.0-10.0) H 01/22/18 07:09 Eos % (Auto) 7.9 % (0.0-4.0) H 01/22/18 07:09 Baso % (Auto) 0.7 % (0.0-2.0) 01/22/18 07:09 Neut # (Auto) 5.1 K/uL (1.8-7.0) 01/22/18 07:09 Lymph # (Auto) 1.8 K/uL (1.0-4.3) 01/22/18 07:09 [place] # (Auto) 1.1 K/uL (0.0-0.8) H 01/22/18 07:09 Eos # (Auto) 0.7 K/uL (0.0-0.7) 01/22/18 07:09 Baso # (Auto) 0.1 K/uL (0.0-0.2) 01/22/18 07:09 PT 13.2 SECONDS (9.7-12.2) H 01/21/18 08:02 INR 1.2 01/21/18 08:02 APTT 46 SECONDS (21-34) H 01/19/18 06:17 Sodium 138 mmol/L (132-148) 01/22/18 07:09 Potassium 4.4 mmol/L (3.6-5.2) 01/22/18 07:09 Chloride 104 mmol/L (98-107) 01/22/18 07:09 Carbon Dioxide 25 mmol/L (22-30) 01/22/18 07:09 Anion Gap 13 (10-20) 01/22/18 07:09 BUN 23 mg/dL (7-17) H 01/22/18 07:09 Creatinine 1.1 mg/dL (0.7-1.2) 01/22/18 07:09 Est GFR ( Amer) 58 01/22/18 07:09 Est GFR (Non-Af Amer) 48 01/22/18 07:09 POC Glucose (mg/dL) 155 mg/dL (65-110) H 01/23/18 11:24 Random Glucose 212 mg/dL (65-105) H 01/22/18 07:09 Lactic Acid 1.2 mmol/L (0.7-2.1) 01/18/18 09:12 Calcium 9.7 mg/dl (8.6-10.4) 01/22/18 07:09 Phosphorus 3.4 mg/dL (2.5-4.5) 01/22/18 07:09 Magnesium 2.0 mg/dL (1.6-2.3) 01/22/18 07:09 Total Bilirubin 0.3 mg/dL (0.2-1.3) 01/22/18 07:09 AST 35 U/L (14-36) 01/22/18 07:09 ALT 36 U/L (9-52) 01/22/18 07:09 Alkaline Phosphatase 75 U/L (38-126) 01/22/18 07:09 CK-MB (Mass) 6.40 ng/mL (0.0-3.38) H 01/18/18 06:26 Troponin I < 0.0120 ng/mL (0.00-0.120) 01/19/18 06:17 Total Protein 7.0 g/dL (6.3-8.3) 01/22/18 07:09 Albumin 3.8 g/dL (3.5-5.0) 01/22/18 07:09 Globulin 3.2 gm/dL (2.2-3.9) 01/22/18 07:09 Albumin/Globulin Ratio 1.2 (1.0-2.1) 01/22/18 07:09 - Hospital Course Hospital Course: 77 y/o F was transferred to [facility]] on 01/17 and underwent emergent revascularization with balloon angioplasty of RLE. Patient was seen bedside in the ICU on 01/18, POD 1, patient displayed improved flow in the right SFA but still significant for disease, Pt was given heparin drip overnight, brilianta, home meds (hold plavix), and pain control initiated. Chest x-ray performed. Patient was seen at bedside in ICU, POD 2, pt was in no accute distress Pt was seen at bedside on 01/21, pt had no acute events overnight and is stable. Pt was seen at bedside on 01/22, pt had no acute events overnight and is stable. Pt was seen at bedside on 01/23, pt had no acute events overnight and is stable. Imaging: Vascular Study (01/17): Successful atherectomy angioplasty of the right common femoral artery thrombotic occlusion, use of LSM TurboHawk atherectomy device and balloon angioplasty with a 7x30 balloon. Chest X-ray (01/18):Mild pulmonary congestion Arterial Duplex of RLE (01/20): -Right: greater than 75% stenosis of the right common femoral artery, 30-49% stenosis of the right proximal and mid superficial femoral artery, and possible occlusion of the posterior tibial artery. Lower Extremity Ultrasound (01/20): -Right: Severely decreased perfusion of the RLE from iliac to tibial artery levels -Left: Mildly decreased perfusion of the LLE from iliac to tibial artery Xray (01/22): Mild cardiomegaly and Pulmonary venous congestion Cardiac Catheterization (01/22): Discharge Exam - Head Exam Head Exam: ATRAUMATIC, NORMAL INSPECTION, NORMOCEPHALIC - Eye Exam Eye Exam: EOMI, Normal appearance - ENT Exam ENT Exam: Mucous Membranes Moist - Respiratory Exam Respiratory Exam: Clear to PA & Lateral, NORMAL BREATHING PATTERN - Cardiovascular Exam Cardiovascular Exam: RRR, +S1, +S2 - GI/Abdominal Exam GI & Abdominal Exam: Normal Bowel Sounds. absent: Rebound, Rigid, Tenderness - Extremities Exam Additional comments: DIMINISHED PEDAL PULSE AND TIBIAL PULSE RIGHT SIDE - Skin Skin Exam: Pallor (right lower extremity) Discharge Plan - Discharge Medications Prescriptions: Rivaroxaban [Xarelto] 20 mg PO DAILY #30 tab Ticagrelor [Brilinta] 90 mg PO BID 30 Days tab - Follow Up Plan Condition: STABLE Disposition: REHAB FACILITY/REHAB UNIT Instructions: DASH Diet, Peripheral Vascular (Arterial) Disease (DC), Peripheral Vascular Stenting (DC), Diabetes Diet , Diabetes and Diet, Hypertension (DC) Referrals: Michael Darden MD [Staff Provider] - Darrian Young MD [Family Provider] - <Tanvi Zavala V - Last Filed: 01/24/18 20:31> Provider - Provider Date of Admission: 01/17/18 23:30 Attending physician: Tanvi Zavala DO Diagnosis - Discharge Diagnosis (1) Limb ischemia Status: Resolved (2) PVD (peripheral vascular disease) Status: Chronic Priority: Medium (3) IDDM (insulin dependent diabetes mellitus) Status: Chronic (4) Hypertension Status: Chronic (5) Asthma Status: Chronic (6) Constipation Status: Resolved (7) Prophylactic measure Status: Acute Hospital Course - Lab Results Lab Results: Micro Results 01/20/18 Unknown Naris MRSA Culture - Final MRSA NOT DETECTED Most Recent Lab Values WBC 8.8 K/uL (4.8-10.8) 01/22/18 07:09 RBC 3.00 Mil/uL (3.80-5.20) L 01/22/18 07:09 Hgb 8.8 g/dL (11.0-16.0) L 01/22/18 07:09 Hct 26.6 % (34.0-47.0) L 01/22/18 07:09 MCV 88.7 fL (81.0-99.0) 01/22/18 07:09 MCH 29.4 pg (27.0-31.0) 01/22/18 07:09 MCHC 33.2 g/dL (33.0-37.0) 01/22/18 07:09 RDW 14.2 % (11.5-14.5) 01/22/18 07:09 Plt Count 251 K/uL (130-400) 01/22/18 07:09 MPV 8.6 fL (7.2-11.7) 01/22/18 07:09 Neut % (Auto) 58.2 % (50.0-75.0) 01/22/18 07:09 Lymph % (Auto) 20.9 % (20.0-40.0) 01/22/18 07:09 [place] % (Auto) 12.3 % (0.0-10.0) H 01/22/18 07:09 Eos % (Auto) 7.9 % (0.0-4.0) H 01/22/18 07:09 Baso % (Auto) 0.7 % (0.0-2.0) 01/22/18 07:09 Neut # (Auto) 5.1 K/uL (1.8-7.0) 01/22/18 07:09 Lymph # (Auto) 1.8 K/uL (1.0-4.3) 01/22/18 07:09 [place] # (Auto) 1.1 K/uL (0.0-0.8) H 01/22/18 07:09 Eos # (Auto) 0.7 K/uL (0.0-0.7) 01/22/18 07:09 Baso # (Auto) 0.1 K/uL (0.0-0.2) 01/22/18 07:09 PT 13.2 SECONDS (9.7-12.2) H 01/21/18 08:02 INR 1.2 01/21/18 08:02 APTT 46 SECONDS (21-34) H 01/19/18 06:17 Sodium 138 mmol/L (132-148) 01/22/18 07:09 Potassium 4.4 mmol/L (3.6-5.2) 01/22/18 07:09 Chloride 104 mmol/L (98-107) 01/22/18 07:09 Carbon Dioxide 25 mmol/L (22-30) 01/22/18 07:09 Anion Gap 13 (10-20) 01/22/18 07:09 BUN 23 mg/dL (7-17) H 01/22/18 07:09 Creatinine 1.1 mg/dL (0.7-1.2) 01/22/18 07:09 Est GFR ( Amer) 58 01/22/18 07:09 Est GFR (Non-Af Amer) 48 01/22/18 07:09 POC Glucose (mg/dL) 225 mg/dL (65-110) H 01/23/18 16:16 Random Glucose 212 mg/dL (65-105) H 01/22/18 07:09 Lactic Acid 1.2 mmol/L (0.7-2.1) 01/18/18 09:12 Calcium 9.7 mg/dl (8.6-10.4) 01/22/18 07:09 Phosphorus 3.4 mg/dL (2.5-4.5) 01/22/18 07:09 Magnesium 2.0 mg/dL (1.6-2.3) 01/22/18 07:09 Total Bilirubin 0.3 mg/dL (0.2-1.3) 01/22/18 07:09 AST 35 U/L (14-36) 01/22/18 07:09 ALT 36 U/L (9-52) 01/22/18 07:09 Alkaline Phosphatase 75 U/L (38-126) 01/22/18 07:09 CK-MB (Mass) 6.40 ng/mL (0.0-3.38) H 01/18/18 06:26 Troponin I < 0.0120 ng/mL (0.00-0.120) 01/19/18 06:17 Total Protein 7.0 g/dL (6.3-8.3) 01/22/18 07:09 Albumin 3.8 g/dL (3.5-5.0) 01/22/18 07:09 Globulin 3.2 gm/dL (2.2-3.9) 01/22/18 07:09 Albumin/Globulin Ratio 1.2 (1.0-2.1) 01/22/18 07:09 Attending/Attestation - Attestation I have personally seen and examined this patient.: Yes I have fully participated in the care of the patient.: Yes I have reviewed all pertinent clinical information, including history, physical exam and plan: Yes Notes (Text): This is late computer entry for 01/23/18. Patient seen, examined and case discussed with day-time resident. Patient seen this morning. Patient reports pain was improved but is controlled with percocet. Breathing is improved. Patient is frustrated about her leg. I did indicated her that she has poor circulation and that she will likely need a future intervention. I have also spoken with her that she has risk factors of diabetes and hypertesnion that contribute to her poor circulation. I have spoken with Dr. Darden, reports she is stable for discharge for rehab. He will coordinate with patient's primary head of it, Dr Guzman who is away on vacation to coordinate for future intervention for the right lower extremity. I have spoken with case and manager social responsibility. They have received approval for [facility] and did inform them that her PMD: Dr. Darrian Young is her PMD who I believe goes to the [facility] specifically. Dr. Darden will likely bring her back for future intervention next week. Upon discharge, patient d/c on Xarelto and Brilinta for Peripheral vascular disease, specifically for the right lower extremity and percocet PRN for pain. We have resumed her antihypertensives on discharge. d/c IV fluids. Patient's right leg is warm to touch, unable to discern pedal pulses via doppler. Lung exam: improved since nebulizer, diuretic, and d/c iv fluids This is a summary of patient's hospitalization. Please refer to EMR for complete record of details. Discharge Diagnoses: (1) Limb ischemia--Stable Assessment & Plan: * Dr. Darden (nuclear equipment operator) on case-->help appreciated * Angiography (01/17/18): short segment occlusion of distal external iliac artery extending to the proximal common femoral artery. Multifocal areas of severe stenosis of superficial femoral and popliteral arterieis. Lower lower extremities: indwelling proximal/mid superficial femoral artery stent which is patent. Multifocal areas of moderate stenosis involving the superficial femorial artery with mild to moderate stenosis of the popliteal artery. posterior tibial artery. * Successful atherectomy angioplasty with right common femoral artery thrombotic occlusion (01/17/18): * Patient switched from Heparin drip to Xarelto on 01/19/18 * Arterial duplex (01/21/18): Right: severely decreased perfusion of the right lower extremity, noted from the iliac to tibial artery levels. Left: reveals mildly decreased perfusion of the left lower extremity, noted from the iliac to tibial artery levels Medication: * Xarelto 20mg PO Daily * Brilinta 90mg PO BID * pain prn: percocet 1 tab PO q6h PRN severe pain. Status: Acute (2) PVD (peripheral vascular disease)-->Chronic Assessment & Plan: * Known to both Dr. Guzman and Dr. Darden * Cardiology to determine next step for future intervention in regards to right lower extremity-->will bring back next week per discussion with Dr Darden Status: Chronic (3) IDDM (insulin dependent diabetes mellitus)-->chronic Assessment & Plan: * Aspart 12 unit subq TIDAC * Lantus 33 units subqHS * Accuchecks QAC and HS * Hypoglycemic protocol * Hgba1c: 7.7 (06/28/17) Status: Chronic (4) Hypertension-->chronic Assessment & Plan: * Patient takes Norvasc 2.5mg PO daily and HCTZ 12.5mg PO daily as outpatient. * We have resumed during hospitalization Status: Chronic (5) Asthma-->chronic Assessment & Plan: * Duonebs PQ4H * Singulair 10mg PO daily * Chest xray: mild cardiomegaly; increased pulmonary venous congestion Status: Chronic (6) Constipation-->resolved Assessment & Plan: * start colace 100mg PO TID * monitor for bowel movement * Resolved Status: Acute (7) Chronic Renal insufficiency Assessment & Plan: * Monitor Cr. * d/c iv fluids * GFR: 40s range (8) Prophylactic measure Assessment & Plan: * Xarelto 20mg PO daily * Protonix 40mg PO daily * PT/OT eval * out of bed to chair * PT is recommending for JAMIE. Status: Acute
== END 2018-01-23 17:59 | DRG 271 ==
LOC: C.CATHLAB 20:16 → C.9I 23:30 → C.6T 01-20 20:10
PROVIDERS: ADMIT Hospitalist; ATTEND Hospitalist
PROC: 04CK3ZZ Extirpation of Matter from Right Femoral Artery, Percutaneous Approach (ICD-10-PCS; principal; 2018-01-17)
PROC: 047K3ZZ Dilation of Right Femoral Artery, Percutaneous Approach (ICD-10-PCS; 2018-01-17)
PROC: 3E05317 Introduction of Other Thrombolytic into Peripheral Artery, Percutaneous Approach (ICD-10-PCS; 2018-01-17)
DX: I70.201 Unspecified atherosclerosis of native arteries of extremities, right leg (principal); N17.9 Acute kidney failure, unspecified; J45.901 Unspecified asthma with (acute) exacerbation; I70.92 Chronic total occlusion of artery of the extremities; Z79.4 Long term (current) use of insulin; Z87.891 Personal history of nicotine dependence; N18.9 Chronic kidney disease, unspecified; K59.00 Constipation, unspecified; M81.0 Age-related osteoporosis without current pathological fracture; J44.9 Chronic obstructive pulmonary disease, unspecified; K27.9 Peptic ulcer, site unspecified, unspecified as acute or chronic, without hemorrhage or perforation; I51.7 Cardiomegaly; E78.5 Hyperlipidemia, unspecified; E11.69 Type 2 diabetes mellitus with other specified complication; E11.51 Type 2 diabetes mellitus with diabetic peripheral angiopathy without gangrene; E11.22 Type 2 diabetes mellitus with diabetic chronic kidney disease; I12.9 Hypertensive chronic kidney disease with stage 1 through stage 4 chronic kidney disease, or unspecified chronic kidney disease

== ENCOUNTER 2018-05-26 12:23 | Day surgery (SDC) | payer OTHER ==
[2018-05-24 11:53] VITALS: BMI 28.3
[2018-05-26] MEDS ORDERED: Iodixanol 320 MG/ML 200 ML BOTTLE IV ONE (13:32)
[2018-05-26] MEDS ORDERED: Midazolam 2 MG/2 ML VIAL ONE ×2 (14:00→14:38)
[2018-05-26] MEDS ORDERED: Protamine 50mg/5mL Inj IV ONE (15:30)
[2018-05-26] MEDS ORDERED: Sodium Chloride 0.9% 1,000 ML IV SCH (16:30)
[2018-05-26] MEDS ORDERED: HYDROmorphone 1 mg/ml ISec ONE (18:02)
[2018-05-26] MEDS ORDERED: HYDROmorphone 1 mg/ml ISec IVP STA (18:10)
--- NOTE | 2018-05-27 06:43 | CARDCATH ---
PROCEDURE DATE: 05/26/2018 INDICATIONS: Tyesha Chavez is a 78-year-old female with history of peripheral vascular occlusive disease, status post critical acute limb ischemia two months ago with stent occlusion of the right common femoral artery, who presented back with complaints of worsening pain of the right lower extremity. She was admitted to [facility], initiated on IV heparin therapy and subsequently was transferred over after a CTA had showed high-grade narrowing of the right PRESENTATION TEAM MEMBER. She was subsequently brought for further evaluation and treatment. PROCEDURES PERFORMED: Distal abdominal aortogram with bilateral iliac runoff, selective bilateral iliofemoral angiogram with runoff. Atherectomy of right common femoral artery with use of LS-M atherectomy device. In addition, balloon angioplasty with 6 x 40 mm drug-coated balloon. Lesion reduction from 95% to 0% RENETTA-3 flow; 7-Swiss right femoral artery access, and Mynx closure device for hemostasis. ANGIOGRAPHIC FINDINGS: Right lower extremity, right common iliac, external iliac patent. Common femoral high-grade 95% stenosis with RENETTA-1 flow. There was a 100 mm gradient across the lesion. Profunda femoris patent. SFA mid to distal 60% to 70% stenosis. Popliteal patent. One vessel runoff below the knee. Left lower extremity, left common iliac, external iliac patent. Profunda femoris patent. SFA mid segment patent. Distal SFA has 70% stenosis with one-vessel runoff below the knee. Intervention performed, a #7-Swiss 45 cm [place] sheath was advanced across the aortoiliac bifurcation. ____ arthrectomy ____ balloon angioplasty with a drug-coated balloon with a 6 x 40 mm balloon down to 0% REENTTA-3. Subsequent pull back lesion was noted with less than 10 mmHg. IMPRESSION: Successful atherectomy and angioplasty with a drug-coated balloon of common femoral artery, restenosis with the use of LS-M arthrectomy device and additional balloon angioplasty with 6 x 40 mm drug-coated balloon. RECOMMENDATIONS: Continue the patient on dual antiplatelet therapy, guideline-directed therapy for peripheral vascular occlusive disease and CAD. Michael Darden MD
== END 2018-05-26 20:15 | disposition short-term general hospital (02) ==
LOC: C.CATHLAB 12:23
PROVIDERS: ATTEND Internal Medicine Interventional Cardiology
DX: I73.9 Peripheral vascular disease, unspecified (principal)
CPT/HCPCS: 36247; 37225; 75625; 75716; 75774; 82948; 85347; 99152; 99153; C1714; C1725; C1760; C1766; C1769; C1884; C1887; C1894; J1170; J1644; J2250; J2720; J3010; J7030; Q9966